=== PATIENT | female | born 1975 | race Caucasian/White ===

== ENCOUNTER 2023-03-17 11:42 | Inpatient (IN) | payer BC, SELFPAY ==
[2023-03-17] VITALS (14 sets, daily range): BP systolic 113–151; BP diastolic 57–96; PULSE 84–96; RESP 13–27; TEMP 36.9–37.4; O2SAT 94–99; BMI 38.7
--- NOTE | ~2023-03-17 | US_ITS ---
EXAMINATION: US pelvic complete DATE: 03/17/2023 18:07 INDICATION: Right lower quadrant abdominal pain. TECHNIQUE: Multiple transabdominal and endovaginal sonographic images of the pelvis were obtained. COMPARISON: None. FINDINGS: The anteverted uterus measures 8.0 x 3.7 x 4.9 cm. The endometrial complex measures 5 mm in thicknes s. There is small amount of hypoechoic material surrounded by anechoic fluid within the endocervical canal. The fluid within the endocervical canal measures 2.2 cm in length and 1.5 x 0.4 cm maximal tra nsaxial dimensions. 3 mm anechoic nabothian cyst at the upper cervix. The right ovary measures 3.0 x 3.9 x 3.1 cm. Vascular flow is identified in the right ovary on color Doppler. Along side the right o vary at the right adnexa is a dilated anechoic tubular structure consistent with a hydrosalpinx. The wall appears mildly thickened and irregular which along with the prominent enhancement and surroundin g stranding on the immediately prior CT is again suspicious for pyosalpinx. When compared with prior CT, what is measured as the left ovary with central cyst likely represents a portion of a similar dil ated and serpiginous left hydrosalpinx/pyosalpinx. The left ovary is not definitive identified on the provided images but appears normal in size on the prior CT. There is small amount of free fluid in t he pelvis. IMPRESSION: 1. Bilateral dilated fallopian tubes consistent with hydrosalpinx with mildly thickened appearing wal ls which demonstrate enhancement on prior CT suspicious for pyosalpinx. 2. Small amount of echogenic material surrounded by fluid within the endocervical canal which could r epresent blood/clot with normal appearing endometrial canal. Correlate with menstrual cycle. Reviewed, dictated and finalized at location A. ROOFER IMPRESSION: 1. Bilateral dilated fallopian tubes consistent with hydrosalpinx with mildly t hickened appearing kern which demonstrate enhancement on prior CT suspicious f or pyosalpinx. 2. Small amount of echogenic material surrounded by fluid within the endocervic al canal which could represent blood/clot with normal appearing endometrial can al. Correlate with menstrual cycle.
--- NOTE | ~2023-03-17 | CT_ITS ---
EXAMINATION: CT guide absc cath placement DATE: 03/18/2023 15:54 INDICATION: Right-sided tubo-ovarian abscess. TECHNIQUE: The procedure including the risks, benefits, and alternatives was discussed with the patie nt. Risks discussed included bleeding and infection. The patient understood the risks and benefits an d agreed to proceed. The patient was confirmed to be receiving appropriate antibiotic coverage. The skin overlying the abdomen was prepped and draped in usual sterile fashion. Anesthetic was administe red with 1% lidocaine subcutaneously. Moderate sedation was achieved with 1 mg Versed IV and 50 mcg f entanyl IV. An 18 gauge trochar needle was inserted into the right tubo-ovarian abscess with CT starla nce. The needle was exchanged over a wire for 5 Niuean, 7 Niuean, and 9 Niuean dilators and then for an 8.5 Niuean pigtail catheter. The catheter was stitched to the skin, and a sterile dressing was koby lied. The mA was adjusted according to patient size. Iterative reconstruction technique was employed. The dose-length product was 242.36 mGy-cm. There were no immediate complications. FINDINGS: CT images demonstrate the catheter within the right tubo-ovarian abscess. 10 mL fluid was a spirated for testing. IMPRESSION: 1. Successful CT-guided right tubo-ovarian abscess drainage. 2. 10 mL opaque, ascencio fluid was sent for aerobic and anaerobic cultures. Reviewed, dictated and finalized at location A. OR ANALYST PROGRAMMER
--- NOTE | ~2023-03-17 | CT_ITS ---
EXAMINATION: CT abdomen pelvis w con DATE: 03/17/2023 15:16 INDICATION: Right lower quadrant abdominal pain. TECHNIQUE: Computed tomography (CT) of the abdomen and pelvis was performed with 100 mL Omnipaque 350 intravenous contrast. Automated exposure control and iterative reconstruction technique were employe d. The dose-length product was 1358.28 mGy-cm. COMPARISON: None. FINDINGS: The visualized portions of the lung bases demonstrate mild atelectasis. No pleural effusion . The heart size is normal. No pericardial effusion. The liver is normal. There are changes of cholec ystectomy. The spleen, pancreas, adrenal glands, and kidneys are normal. There are no dilated loops o f bowel. The appendix is not visualized. There is bilateral hydrosalpinx, right worse than left. The right-sided hydrosalpinx measures 6.1 x 3.6 x 6.0 cm. The left-sided hydrosalpinx measures 2.5 x 2.7 x 2.7 cm. There is fat stranding in the pelvis. There are no pathologically enlarged lymph nodes. The re is physiologic fluid in the pelvis. There is severe lumbar spondylosis. There is mild chronic ante rior wedging of T11 vertebral body. IMPRESSION: 1. Bilateral hydrosalpinx, likely pyosalpinx (tubo-ovarian abscesses). Reviewed, dictated and finalized at location A. GAGE BROKER
[2023-03-17 12:09] LABS: Basophils Absolute Auto 0.1 K/mm3 (0.0-0.1); Basophils Percent Auto 0.4 % (0.2-1.2); Hematocrit 45.6 % (37.0-47.0); Hemoglobin 14.3 g/dL (12.0-15.0); Immature Granulocyte Absolute 0.29 K/mm3 (0.00-0.031); Immature Granulocyte Percent A 0.9 % (0-0.5); Lymphocytes Absolute Auto 2.04 K/mm3 (0.9-3.2); Lymphocytes Percent Auto 6.5 % (18.3-44.2); Mean Corpuscular HGB Conc 31.4 g/dl (32-36); Mean Corpuscular Hemoglobin 27.3 pg (26-34); Mean Corpuscular Volume 87.2 fl (80-100); Mean Platelet Volume 9.8 fl (7.4-10.4); Monocytes Absolute Auto 1.3 K/mm3 (0.1-0.6); Monocytes Percent Auto 4.3 % (2.6-8.5); Neutrophils Absolute Auto 27.4 K/mm3 (1.3-6.7); Neutrophils Percent Auto 87.9 % (45.5-73.1); Platelet Count Result 373 k/mm3 (150-375); Red Blood Count 5.23 M/mm3 (4.2-5.4); White Blood Count 31.2 K/mm3 (4.5-10.0)
[2023-03-17 12:28] LABS: Atypical Lymphocytes Present; Platelet Estimate Adequate (Adequate); Schistocytes None Seen (NORMAL)
[2023-03-17 12:29] LABS: Alanine Aminotransferase 21 U/L (6-35); Albumin Level 4.2 g/dL (3.5-5.1); Alkaline Phosphatase 91 U/L (38-126); Anion Gap 10 mmol/L (8-16); Aspartate Amino Transferase 31 U/L (14-36); Bilirubin,Total 0.9 mg/dL (0.2-1.3); Blood Urea Nitrogen 10 mg/dL (7-17); Calcium 9.3 mg/dL (8.4-10.2); Carbon Dioxide 23 mmol/L (22-30); Chloride 103 mmol/L (98-107); Estimated CRCL calculation 99 ml/min; Estimated Glomerular Filt Rate > 60; Glucose 144 mg/dL (65-110); Lipase 27 U/L (23-300); Sodium 136 mmol/L (137-145)
--- NOTE | 2023-03-17 13:45 | ED.GENADULT ---
HPI - General Adult General Chief complaint: Abdominal Pain <Georgi Delarosa PA-C - Last Filed: 03/17/23 14:13> Stated complaint: abd pain <Georgi Delarosa PA-C - Last Filed: 03/17/23 14:13> Time Seen by Provider: 03/17/23 13:32 <Georgi Delarosa PA-C - Last Filed: 03/17/23 14:13> Source: patient <Georgi Delarosa PA-C - Last Filed: 03/17/23 14:13> Mode of arrival: ambulatory <Georgi Delarosa PA-C - Last Filed: 03/17/23 14:13> Limitations: no limitations <Georgi Delarosa PA-C - Last Filed: 03/17/23 14:13> History of Present Illness HPI narrative: This is a 47-year-old female who presents ED chief complaint of right lower quadrant abdominal pain beginning last night. Reports that she has history of a cyst on the right side, however pain became severe, and unlike any pain she has had before. Reports it started after becoming nauseated and episodes. Reports 10/10 pain here. Reports it is only located in the right lower quadrant. Denies fevers, chills, problems with urination, any concern for STDs. Reports abdominal surgical history of cholecystectomy. <Georgi Delarosa PA-C - Last Filed: 03/17/23 14:13> This is a 47-year-old female who presents ED chief complaint of right lower quadrant abdominal pain beginning last night. Reports that she has history of a cyst on the right side, however pain became severe, and unlike any pain she has had before. Reports it started after becoming nauseated and episodes. Reports 10/10 pain here. Reports it is only located in the right lower quadrant. Denies fevers, chills, problems with urination, any concern for STDs. Reports abdominal surgical history of cholecystectomy. patient denies any heavy vaginal bleeding but states she is still having some spotting after having her period on March 05. Patient denies any vaginal discharge. <Ricardo Ariza MD - Last Filed: 03/17/23 18:54> Related Data Allergies/adverse reactions: Allergies Allergy/AdvReac Type Severity Reaction Status Date / Time erythromycin base Allergy Unknown TOLD Verified 03/17/23 13:46 CHILD aspirin Allergy Unknown Verified 03/17/23 13:46 <Georgi Delarosa PA-C - Last Filed: 03/17/23 14:13> Review of Systems Review of Systems: All systems as dictated in HPI <Georgi Delarosa PA-C - Last Filed: 03/17/23 14:13> Exam Narrative: GENERAL: Well-appearing, well-nourished, and in no acute distress. HEAD: Normocephalic, atraumatic. EYES: PERRLA and EOMI. ENT: Nares clear, no rhinorrhea or epistaxis. Mucous membranes moist. Oropharynx without tonsillar hypertrophy exudate or other lesions. NECK: Supple. No adenopathy or masses. CHEST: No respiratory distress. Clear to auscultation. No wheezes rales or rhonchi HEART: Regular rate and rhythm. No murmur heard. Normal peripheral pulses. ABDOMEN: McBurney's point positive. Psoas sign positive. Tender in the right lower and left lower quadrants. Voluntary guarding. soft, nondistended, normal active bowel sounds. MSK: Normal range of motion. No edema. SKIN: Warm, dry, no rash. NEURO: Alert and oriented x3. No focal deficits. PSYCH: Normal mood and affect. <Georgi Delarosa PA-C - Last Filed: 03/17/23 14:13> Course Course Emergency Course: 47-year-old female presents emergency department for evaluation of lower abdominal pain. CT scan was concerning for pyosalpinx. OBGyne was consulted and a pelvic ultrasound was ordered. Ultrasound was more indicative of hydrosalpinx. In response to the CT showing possible pyosalpinx patient was started ceftriaxone, Flagyl and doxycycline. OB Gyne was updated on the results of the CT and ultrasound. Patient was updated on the plan for IV antibiotics and admission. All questions and concerns were addressed. Patient was stable at time of admission. <Ricardo Ariza MD - Last Filed: 03/17/23 18:54> Vital Signs Vital signs: Vital Signs Temperature 98.4 F
[2023-03-17] MEDS: SODIUM CHLORIDE 0.9% IV 1,000 ML 999 ML IV CONT (14:27)
[2023-03-17] MEDS: ONDANSETRON INJ 4 MG/2 ML VIAL IV PUSH ×2 (14:27→21:20)
[2023-03-17] MEDS: HYDROmorphone HCL INJ (*CRX) 1 MG/ML SYR 0.5 MG IV PUSH (14:28)
[2023-03-17 14:49] LABS: Appearance Urine Clear (Clear); Bacteria Urine None Seen /hpf; Bilirubin Urine Negative (Negative); Blood Urine Negative (Negative); Color Urine Yellow (Yellow); Glucose Urine UA Negative (Negative); Ketones Urine 1+ mg/dL (Negative); Leukocyte Esterase Ur Negative LEU/UL (Negative); Nitrate Urine Negative (Negative); Non Pathogenic Casts 0-2; Protein Urine 1+ mg/dL (Negative); Specific Grav Ur 1.027 (1.001-1.035); Squamous Epithelial Cell Urine None seen /hpf (Few); Urobilinogen Urine 0.2 mg/dL (<2.0); WBC Urine 0-5 /hpf
[2023-03-17 14:52] LABS: Add Urine Microscopic? YES
[2023-03-17] MEDS: metroNIDAZOLE 500 MG/ISO 100ML 500 MG/100 ML BAG 100 MG IVPB (16:44)
[2023-03-17 17:46] LABS: Trichomonas Vag PCR NOT DETECTED (NOT DETECTE)
[2023-03-17 18:10] LABS: Chlamydia trachomatis NOT DETECTED (NOT DETECTE); Neisseria gonorrhoeae PCR NOT DETECTED (NOT DETECTE)
[2023-03-17] MEDS: DOXYCYCLINE 100 MG/NS 100 ML 100 MG/100 ML BAG IVPB (18:20)
--- NOTE | 2023-03-17 19:27 | PC.NURSE ---
Pts visitors requested temperature to be taken, this RN took pt oral temperature which read 98.8 and visitors voiced youre doing us no good, she just drank icewater . This RN attempted stated well I can take it under your arm if you would like to which pt pushed RNs arm away stating she doesnt need attitude. This RN exited room and notified charge, RN.
--- NOTE | 2023-03-17 21:12 | ADMGEN ---
This patient, Lucille Ruth, was admitted to [facility] Surg Room 321-02 at 1925. Patient/family oriented to hospital policies and general routines including ID bracelet, bed and alarms, visiting hours, pain management, procedures, bathroom and other care routines, personal items, smoking policy, room service/diet, and visiting hours. Information on how to activate the Rapid Response Team has been discussed. Patient/Family are encouraged to report perceived risks to care and to ask questions if they do not understand what they are told or what they should do.
[2023-03-17] MEDS: THIAMINE HCL INJ 100 MG, FOLIC ACID INJ 1 MG, MAGNESIUM SULFATE INJ 1 GM in LACTATED RI... IV CONT (21:55)
[2023-03-18] VITALS (11 sets, daily range): BP systolic 109–130; BP diastolic 62–85; PULSE 76–87; RESP 13–27; TEMP 36.2–37.1; O2SAT 91–97; BMI 38.7
[2023-03-18] MEDS: HYDROmorphone HCL INJ (*CRX) 1 MG/ML SYR 0.5 MG IV PUSH (00:27)
[2023-03-18] MEDS: ONDANSETRON INJ 4 MG/2 ML VIAL IV PUSH ×3 (04:06→14:43)
[2023-03-18 06:11] LABS: Basophils Absolute Auto 0.1 K/mm3 (0.0-0.1); Basophils Percent Auto 0.2 % (0.2-1.2); Hematocrit 41.7 % (37.0-47.0); Hemoglobin 13.1 g/dL (12.0-15.0); Immature Granulocyte Absolute 0.31 K/mm3 (0.00-0.031); Immature Granulocyte Percent A 1.2 % (0-0.5); Lymphocytes Absolute Auto 1.58 K/mm3 (0.9-3.2); Lymphocytes Percent Auto 6.3 % (18.3-44.2); Mean Corpuscular HGB Conc 31.4 g/dl (32-36); Mean Corpuscular Hemoglobin 27.9 pg (26-34); Mean Corpuscular Volume 88.9 fl (80-100); Mean Platelet Volume 9.7 fl (7.4-10.4); Monocytes Absolute Auto 0.9 K/mm3 (0.1-0.6); Monocytes Percent Auto 3.6 % (2.6-8.5); Neutrophils Absolute Auto 22.2 K/mm3 (1.3-6.7); Neutrophils Percent Auto 88.7 % (45.5-73.1); Platelet Count Result 303 k/mm3 (150-375); Red Blood Count 4.69 M/mm3 (4.2-5.4); Red Cell Distribution Width 14.1 % (11.5-14.5)
[2023-03-18] MEDS: metroNIDAZOLE 500 MG/ISO 100ML 500 MG/100 ML BAG 100 MG IVPB ×2 (06:14→16:40)
--- NOTE | 2023-03-18 06:22 | PM.IMHP ---
H&P: HPI History of Present Illness Date/Time: 03/17/23 19:02 Chief Complaint: RLQ pain Narrative: Lucille is a 47yo G0, LMP 03/05/23 who presented to the ER with RLQ pain. She was found to have a leukocytosis of 30K. CT scan was ordered to rule out intra-abdominal process and concerns for TOA were noted. STI screen was negative in the ER. She has a h/o chlamydial infection many years ago. She has been following with a SQL DATABASE PROGRAMMER in [place] for an 8cm right ovarian cyst for the last two years; last imaging was 6 months ago. She has a h/o PCOS but reports for the last few years her cycles have been very regular, not too heavy or painful. No overt abnormal vaginal discharge, bleeding. No dysuria. She has been having vomiting and diarrhea since Friday and really thought she had appendicitis. She has not had anything to eat since Friday except for crackers and small sips of Sprite. Pain is better controlled today, compared to yesterday. Afebrile. NPO. Review of Systems Constitutional: Constitutional: Denies fever(s) Cardiovascular: Cardiovascular: Denies chest pain and Denies rapid heart rate Respiratory: Respiratory: Denies cough and Denies dyspnea Gastrointestinal: Gastrointestinal: Reports abdominal pain, Denies constipation, Reports GI cramping, Reports diarrhea, Reports nausea and Reports vomiting Genitourinary: Genitourinary: Denies abnormal vaginal bleeding, Reports pelvic pain, Reports vaginal discharge and Denies vaginal odor Neurologic: Denies headache(s) [facility] Social History Social History Smoking status: Current some day smoker Smokeless tobacco user: other Alcohol intake: former Substance use: current Substance use type: marijuana Last use: 03/17/23 Lack of Transportation: No Lack of Food: Never True Current Housing: I Have Housing Concerned About Future Housing: No Difficulty Paying Gas/Electric Bills: No Difficulty Paying for Meds: No Currently Unemployed: No Education: High School Diploma/GED Difficulty w/ Childcare or Family Care: No Spiritual care concerns: No Meds Home Medications and Allergies Home Medications Medication Instructions Recorded Confirmed Type No Home Medications 03/17/23 03/17/23 History Allergies Allergy/AdvReac Type Severity Reaction Status Date / Time erythromycin base Allergy Unknown TOLD Verified 03/17/23 13:46 CHILD aspirin Allergy Unknown Verified 03/17/23 13:46 Vital Signs Vital Signs - 24 hr 03/17/23 11:44 03/17/23 13:57 03/17/23 14:46 Temperature 98.4 F Pulse Rate 90 90 90 Respiratory Rate 20 22 H 19 Blood Pressure 151/92 H 123/74 140/78 Pulse Oximetry 99 97 97 Oxygen Delivery Room Air 03/17/23 15:01 03/17/23 16:08 03/17/23 16:35 Temperature Pulse Rate 94 84 93 Respiratory Rate 18 22 H 13 Blood Pressure 130/85 126/74 130/80 Pulse Oximetry 99 94 96 Oxygen Delivery 03/17/23 13:57 03/17/23 14:01 03/17/23 14:47 Temperature Pulse Rate 87 84 92 Respiratory Rate 23 H 26 H 23 H Blood Pressure 123/74 114/57 L 140/78 Pulse Oximetry 95 96 98 Oxygen Delivery 03/17/23 15:01 03/17/23 16:16 03/17/23 17:01 Temperature Pulse Rate 96 89 84 Respiratory Rate 16 20 22 H Blood Pressure 130/85 127/69 113/69 Pulse Oximetry 99 94 96 Oxygen Delivery 03/17/23 17:16 03/17/23 18:21 Temperature Pulse Rate 85 88 Respiratory Rate 27 H 22 H Blood Pressure 121/59 L 130/96 H Pulse Oximetry 99 98 Oxygen Delivery Exam Const: General: cooperative, healthy appearing, comfortable, no acute distress and obese Resp: Effort & Inspection: normal respiratory effort Auscultation: clear to auscultation bilaterally Cardio: Rate: regular rate GI: Inspection: normal to inspection GI Palp: Yes abdominal tenderness, Yes Soft to palpation, Yes Tenderness to palpation present (GI) and No Guarding due to palpation present (GI) Auscultation: normal bowel sounds Skin: General skin exam: normal co
[2023-03-18] MEDS: DOXYCYCLINE 100 MG/NS 100 ML 100 MG/100 ML BAG IVPB ×2 (07:40→18:36)
[2023-03-18] MEDS: DEXTROSE 5%/0.9% SOD CHL 1,000 ML 125 ML IV CONT ×2 (08:54→23:57)
[2023-03-18 13:33] LABS: SPREG INTERNAL CONTROL Positive; Serum Qual hCG Negative
[2023-03-18 13:35] LABS: INR 1.3; Prothrombin Time 16.6 Seconds (11.1-14.7)
[2023-03-18 13:37] LABS: Partial Thromboplastin Time 35.5 SECONDS (22.3-36.8)
--- NOTE | 2023-03-18 15:04 | WPDMODSED ---
Moderate Sedation Note-Pt Data Patient Data Diagnosis: Tubo-ovarian abscess. Present Complaint: Tubo-ovarian abscess. Procedure to be performed/Plan: CT-guided right tubo-ovarian abscess drainage. Allergies Allergy/AdvReac Type Severity Reaction Status Date / Time erythromycin base Allergy Unknown TOLD Verified 03/17/23 13:46 CHILD aspirin Allergy Unknown Verified 03/17/23 13:46 Home Medications Medication Instructions Recorded Confirmed Type No Home Medications 03/17/23 03/17/23 History Current Medications: Active Medications Acetaminophen (Acetaminophen 500 Mg Tablet) 1,000 mg PO Q6H PRN PRN Reason: Mild Pain (1-3) or Fever Hydrocodone Bitart/Acetaminophen (Hydrocodone/Acetaminophen (*Crx) 5-325 Mg Tablet) 1 tab PO Q4H PRN PRN Reason: Pain Rated 4-6 Docusate Sodium (Docusate Sodium 100 Mg Capsule) 100 mg PO Q12H PRN PRN Reason: Constipation Hydromorphone HCl (Hydromorphone Hcl Inj (*Crx) 1 Mg/Ml Syr) 0.5 mg IV PUSH Q4H PRN PRN Reason: Pain Rated 7-10 Last Admin: 03/18/23 00:27 Dose: 0.5 mg Ceftriaxone Sodium (Rocephin 1 Gm/Ns 50 Ml) 1 gm in 50 mls @ 100 mls/hr IVPB Q24H [facility] Doxycycline Hyclate (Vibramycin 100 Mg/Ns 100 Ml) 100 mg in 100 mls @ 100 mls/hr IVPB Q12H [facility] Last Admin: 03/18/23 07:40 Dose: 100 mls/hr Metronidazole (Flagyl 500 Mg/Iso Soln 100 Ml) 500 mg in 100 mls @ 100 mls/hr IVPB Q12H [facility] Last Infusion: 03/18/23 07:14 Dose: Infused Dextrose/Sodium Chloride (Dextrose 5% Sodium Chloride 0.9%) 1,000 mls @ 125 mls/hr IV CONT .Q8H [facility] Last Admin: 03/18/23 08:54 Dose: 125 mls/hr Ondansetron HCl (Ondansetron Inj 4 Mg/2 Ml Vial) 4 mg IV PUSH Q4H PRN PRN Reason: Nausea Last Admin: 03/18/23 14:43 Dose: 4 mg Sedation/Anesthesia: No previous sedation/anesthesia problems (including family history). PMFSH Social History Social History Smoking status: Current some day smoker Smokeless tobacco user: other Alcohol intake: former Substance use: current Substance use type: marijuana Last use: 03/17/23 Lack of Transportation: No Lack of Food: Never True Current Housing: I Have Housing Concerned About Future Housing: No Difficulty Paying Gas/Electric Bills: No Difficulty Paying for Meds: No Currently Unemployed: No Education: High School Diploma/GED Difficulty w/ Childcare or Family Care: No Spiritual care concerns: No Mod Sed Physical Exam Physical Exam Pre Procedural Exam: Normal: Airway, Lungs, Heart Rate and Heart Rhythm and Variation: Abdomen (diffuse tenderness, worse inferiorly) Hours since solid foods: 12 Hours since liquid intake: 12 Mallampati Classification: class II Internal Medicine - PN: Obj Da Vital Signs Vital Signs: Vital Signs - 24 hr 03/17/23 16:08 03/17/23 16:35 03/17/23 16:16 Temperature Pulse Rate 84 93 89 Respiratory Rate 22 H 13 20 Blood Pressure 126/74 130/80 127/69 Pulse Oximetry 94 96 94 Oxygen Delivery 03/17/23 17:01 03/17/23 17:16 03/17/23 18:21 Temperature Pulse Rate 84 85 88 Respiratory Rate 22 H 27 H 22 H Blood Pressure 113/69 121/59 L 130/96 H Pulse Oximetry 96 99 98 Oxygen Delivery 03/17/23 19:37 03/17/23 19:50 03/17/23 20:00 Temperature 37.4 C Pulse Rate 90 86 Respiratory Rate 18 Blood Pressure 119/68 119/71 Pulse Oximetry 96 99 Oxygen Delivery Room Air 03/18/23 05:58 03/18/23 08:00 03/18/23 14:00 Temperature 36.3 C L 36.2 C L Pulse Rate 87 85 Respiratory Rate 18 16 Blood Pressure 126/85 127/74 Pulse Oximetry 94 95 Oxygen Delivery Room Air Intake/Output Intake/Output: Intake & Output 03/15/23 03/16/23 03/17/23 03/18/23 23:59 23:59 23:59 23:59 Intake Total 1250 100 Balance 1250 100 Meds/Results Medications: Active Medications Generic Name Dose Route Start Last Admin Trade Name Freq PRN Reason Stop Dose Admin Acetaminophen 1,000 mg 03/17/23 19:01 Acetaminophen 500 Mg Tablet PO Q6H PRN
[2023-03-19] MEDS: ACETAMINOPHEN 500 MG TABLET 1000 MG PO ×2 (04:43→16:57)
[2023-03-19] MEDS: metroNIDAZOLE 500 MG/ISO 100ML 500 MG/100 ML BAG 100 MG IVPB ×2 (05:01→16:58)
[2023-03-19 05:36] VITALS: BP 115/73; PULSE 66; RESP 14; TEMP 37.2; O2SAT 92
[2023-03-19] MEDS: DOXYCYCLINE 100 MG/NS 100 ML 100 MG/100 ML BAG IVPB ×2 (06:25→18:21)
[2023-03-19 06:31] LABS: Basophils Absolute Auto 0.1 K/mm3 (0.0-0.1); Basophils Percent Auto 0.3 % (0.2-1.2); Eosinophils Absolute Auto 0.2 K/mm3 (0-0.3); Eosinophils Percent Auto 1.3 % (0-4.4); Hematocrit 36.2 % (37.0-47.0); Hemoglobin 11.1 g/dL (12.0-15.0); Immature Granulocyte Absolute 0.12 K/mm3 (0.00-0.031); Immature Granulocyte Percent A 0.8 % (0-0.5); Lymphocytes Absolute Auto 2.13 K/mm3 (0.9-3.2); Lymphocytes Percent Auto 13.8 % (18.3-44.2); Mean Corpuscular HGB Conc 30.7 g/dl (32-36); Mean Corpuscular Hemoglobin 27.5 pg (26-34); Mean Corpuscular Volume 89.8 fl (80-100); Mean Platelet Volume 10.1 fl (7.4-10.4); Monocytes Absolute Auto 0.9 K/mm3 (0.1-0.6); Monocytes Percent Auto 5.6 % (2.6-8.5); Neutrophils Absolute Auto 12.1 K/mm3 (1.3-6.7); Neutrophils Percent Auto 78.2 % (45.5-73.1); Platelet Count Result 266 k/mm3 (150-375); Red Blood Count 4.03 M/mm3 (4.2-5.4); Red Cell Distribution Width 14.1 % (11.5-14.5); White Blood Count 15.5 K/mm3 (4.5-10.0)
[2023-03-19 06:56] LABS: Anion Gap 7 mmol/L (8-16); Blood Urea Nitrogen 12 mg/dL (7-17); Calcium 7.8 mg/dL (8.4-10.2); Carbon Dioxide 25 mmol/L (22-30); Chloride 107 mmol/L (98-107); Estimated CRCL calculation 113 ml/min; Estimated Glomerular Filt Rate > 60; Glucose 122 mg/dL (65-110); Potassium 3.4 mmol/L (3.4-5.0); Sodium 139 mmol/L (137-145)
--- NOTE | 2023-03-19 09:07 | PM.GYNPNOP ---
MANAGER ACQUISITION - A/P Assessment and plan (1) TOA (tubo-ovarian abscess): Code(s): N70.93 - Salpingitis and oophoritis, unspecified Status: Acute Plan - CT scan and MANAGER ACQUISITION US with right adnexal TOA measuring 7-8cm - S/p RLQ drain placement on 03/18/23 -- output of approximately 100cc since placement - Continue Ceftriaxone 1g q24h, Doxycycline 100mg q12h, & Metronidazole 500mg q12h - STI screening: negative - Blood cultures: NGTD (pending) - Abscess culture: pending - Will trend CBC daily: 31.2 -->25 --> 15.5 - Regular diet, PO pain management, bowel regimen PRN Postoperative Procedures: Procedures Operation Date: 03/18/23 15:00 Actual Procedure Side Surgeon p Radiology Procedure Mod.Sed.Rn- Abscess Drain Placement Not Applicable Franc Call MD Time Spent With Patient Time: Total time spent is greater than 50% in coordination of care (as documented) at patient's floor/unit and/or counseling patient: Time with patient: less than 15 minutes MANAGER ACQUISITION- PN:Subj Post-Op Subjective Date/time seen: 03/19/23 09:07 Interval history: Had drain placed 03/18/23 and a significant amount of fluid has drained; initially purulent, now bloody. She reports her pain is much improved since yesterday. Tolerated CLD yesterday. Had BM, voiding normally. Increase in vaginal discharge noted today. No fevers overnight. Review of Systems Constitutional: Constitutional: Denies chills and Denies fever(s) ENT: Reports headache(s) Cardiovascular: Cardiovascular: Denies chest pain and Denies dyspnea Respiratory: Respiratory: Denies cough Gastrointestinal: Gastrointestinal: Denies diarrhea, Reports nausea and Denies vomiting Genitourinary: Genitourinary: Denies abnormal vaginal bleeding, Denies dysuria, Reports pelvic pain and Reports vaginal discharge Exam Const: General: cooperative, comfortable, no acute distress and obese Resp: Effort & Inspection: normal respiratory effort Auscultation: clear to auscultation bilaterally Cardio: Rate: regular rate GI: GI Palp: Yes abdominal tenderness (mild), Yes Soft to palpation and Yes Other GI palpation findings present (drain from RLQ; bloody fluid in bag) Skin: General skin exam: normal color Neuro: General: patient oriented x3 Extrem: General: normal to inspection Psych: Appearance: grossly normal Affect: normal affect Attitude: cooperative MANAGER ACQUISITION - PN: Obj Data Vital Signs Vital Signs: Vital Signs - 24 hr 03/18/23 14:00 03/18/23 15:10 03/18/23 15:45 Temperature 97.2 F L Pulse Rate 85 85 76 Respiratory Rate 16 17 24 H Blood Pressure 127/74 130/73 120/70 Pulse Oximetry 95 96 95 Oxygen Delivery Nasal Cannula Room Air Oxygen Flow Rate 2 03/18/23 15:15 03/18/23 15:20 03/18/23 15:25 Temperature Pulse Rate 84 87 83 Respiratory Rate 19 21 H 18 Blood Pressure 119/64 115/67 118/64 Pulse Oximetry 94 91 97 Oxygen Delivery Nasal Cannula Nasal Cannula Nasal Cannula Oxygen Flow Rate 2 2 6 03/18/23 15:30 03/18/23 15:35 03/18/23 15:40 Temperature Pulse Rate 85 79 76 Respiratory Rate 22 H 23 H 27 H Blood Pressure 116/62 116/64 116/66 Pulse Oximetry 95 93 93 Oxygen Delivery Nasal Cannula Room Air Room Air Oxygen Flow Rate 2 03/18/23 20:05 03/18/23 21:34 03/19/23 05:36 Temperature 98.8 F 98.9 F Pulse Rate 79 66 Respiratory Rate 13 14 Blood Pressure 109/71 115/73 Pulse Oximetry 96 92 Oxygen Delivery Room Air Oxygen Flow Rate Intake/Output Intake/Output: Intake & Output 03/16/23 03/17/23 03/18/23 03/19/23 23:59 23:59 23:59 23:59 Intake Total 1250 1400 1240 Output Total 90 Balance 1250 1310 1240 Meds/Results Medications: Active Medications Generic Name Dose Route Start Last Admin Trade Name Freq PRN Reason Stop Dose Admin Acetaminophen 1,000 mg 03/17/23 19:01 03/19/23 04:43 Acetaminophen 500 Mg Tablet PO 1,000 mg Q6H PRN Administration Mild Pain (1-3) or Fever Hydrocodone Bitart/Acetaminophen
[2023-03-19] MEDS: DEXTROSE 5%/0.9% SOD CHL 1,000 ML 125 ML IV CONT (10:43)
--- NOTE | 2023-03-19 13:05 | PCCCNOTE ---
On 03/19/23, the student, [Toma Siddiqui], provided care and completed [facility] documentation on this patient. I have reviewed the student's documentation and agree with the findings.
[2023-03-19 14:00] VITALS: BP 120/81; PULSE 75; RESP 18; TEMP 37.4; O2SAT 97
--- NOTE | 2023-03-19 19:47 | PC.NURSE ---
30 ml output for surgical drain
[2023-03-19 22:00] VITALS: BP 113/76; PULSE 61; RESP 16; TEMP 36.6; O2SAT 96
[2023-03-20] MEDS: metroNIDAZOLE 500 MG/ISO 100ML 500 MG/100 ML BAG 100 MG IVPB (05:05)
[2023-03-20 06:00] VITALS: BP 125/80; PULSE 60; RESP 16; TEMP 36.4; O2SAT 96
[2023-03-20] MEDS: DOXYCYCLINE 100 MG/NS 100 ML 100 MG/100 ML BAG IVPB (06:06)
--- NOTE | 2023-03-20 06:23 | PC.NURSE ---
30 ml out from percutaneous drain this shift
[2023-03-20 06:29] LABS: Basophils Percent Auto 0.4 % (0.2-1.2); Eosinophils Absolute Auto 0.3 K/mm3 (0-0.3); Eosinophils Percent Auto 2.6 % (0-4.4); Hematocrit 34.6 % (37.0-47.0); Hemoglobin 10.8 g/dL (12.0-15.0); Immature Granulocyte Absolute 0.06 K/mm3 (0.00-0.031); Immature Granulocyte Percent A 0.5 % (0-0.5); Lymphocytes Absolute Auto 2.27 K/mm3 (0.9-3.2); Lymphocytes Percent Auto 20.7 % (18.3-44.2); Mean Corpuscular HGB Conc 31.2 g/dl (32-36); Mean Corpuscular Hemoglobin 27.5 pg (26-34); Monocytes Absolute Auto 0.7 K/mm3 (0.1-0.6); Neutrophils Absolute Auto 7.6 K/mm3 (1.3-6.7); Neutrophils Percent Auto 69.8 % (45.5-73.1); Platelet Count Result 314 k/mm3 (150-375); Red Blood Count 3.93 M/mm3 (4.2-5.4)
--- NOTE | 2023-03-20 06:40 | PM.GYNPNOP ---
SET DECORATOR - A/P Assessment and plan (1) TOA (tubo-ovarian abscess): Code(s): N70.93 - Salpingitis and oophoritis, unspecified Status: Acute Assessment and Plan: - CT scan and SET DECORATOR US with right adnexal TOA measuring 7-8cm - S/p RLQ drain placement on 03/18/23 -- output of approximately 80cc in last 24 hours - S/p Ceftriaxone 1g q24h, Doxycycline 100mg q12h, & Metronidazole 500mg q12h for >72 hours --> will transition to PO meds; Flagyl 500mg BID + doxycycline 100mg BID, first dose tonight - STI screening: negative - Blood cultures: NGTD (pending) - Abscess culture: Gram negative bacilli (pending) - Will trend CBC daily: 31.2 -->25 --> 15.5 --> 11 - Regular diet, PO pain management, bowel regimen PRN - Plan for possible d/c home this weekend; will likely have to go home with drain as it continues to have high output Postoperative Procedures: Procedures Operation Date: 03/18/23 15:00 Actual Procedure Side Surgeon p Radiology Procedure Mod.Sed.Rn- Abscess Drain Placement Not Applicable Franc Call MD Time Spent With Patient Time: Total time spent is greater than 50% in coordination of care (as documented) at patient's floor/unit and/or counseling patient: Time with patient: less than 15 minutes SET DECORATOR- PN:Subj Post-Op Subjective Date/time seen: 03/20/23 06:40 Interval history: TOA drain continues to have high output. She reports her pain is minimal. Tolerating regular diet. Using restroom normally. Vaginal discharge noted. No fevers overnight. Review of Systems Constitutional: Constitutional: Denies chills and Denies fever(s) ENT: Denies headache(s) Cardiovascular: Cardiovascular: Denies chest pain and Denies dyspnea Respiratory: Respiratory: Denies cough Gastrointestinal: Gastrointestinal: Denies diarrhea, Denies nausea and Denies vomiting Genitourinary: Genitourinary: Denies abnormal vaginal bleeding, Denies dysuria, Reports pelvic pain and Reports vaginal discharge Exam Const: General: cooperative, comfortable, no acute distress and obese Resp: Effort & Inspection: normal respiratory effort Auscultation: clear to auscultation bilaterally Cardio: Rate: regular rate GI: GI Palp: Yes abdominal tenderness (mild), Yes Soft to palpation and Yes Other GI palpation findings present (drain from RLQ; bloody fluid in bag) Skin: General skin exam: normal color Neuro: General: patient oriented x3 Extrem: General: normal to inspection Psych: Appearance: grossly normal Affect: normal affect Attitude: cooperative SET DECORATOR - PN: Obj Data Vital Signs Vital Signs: Vital Signs - 24 hr 03/19/23 08:00 03/19/23 14:00 03/19/23 22:00 Temperature 99.3 F 97.9 F Pulse Rate 75 61 Respiratory Rate 18 16 Blood Pressure 120/81 113/76 Pulse Oximetry 97 96 Oxygen Delivery Room Air Intake/Output Intake/Output: Intake & Output 03/17/23 03/18/23 03/19/23 03/20/23 23:59 23:59 23:59 23:59 Intake Total 1250 1450 2926 200 Output Total 90 80 31 Balance 1250 1360 2846 169 Meds/Results Medications: Active Medications Generic Name Dose Route Start Last Admin Trade Name Freq PRN Reason Stop Dose Admin Acetaminophen 1,000 mg 03/17/23 19:01 03/19/23 16:57 Acetaminophen 500 Mg Tablet PO 1,000 mg Q6H PRN Administration Mild Pain (1-3) or Fever Hydrocodone Bitart/Acetaminophen 1 tab 03/17/23 19:01 Hydrocodone/Acetaminophen (*Crx) 5-325 Mg Tablet PO Q4H PRN Pain Rated 4-6 Calcium Carbonate 200 mg 03/20/23 00:35 Calcium Carbonate (Tums) 500 Mg (200 Mg Elemental) PO Q6H PRN Indigestion Docusate Sodium 100 mg 03/17/23 21:00 Docusate Sodium 100 Mg Capsule PO Q12H PRN Constipation Hydromorphone HCl 0.5 mg 03/17/23 18:49 03/18/23 00:27 Hydromorphone Hcl Inj (*Crx) 1 Mg/Ml Syr IV PUSH 0.5 mg Q4H PRN Administration Pain Rated 7-10 Ceftriaxone Sodium 1 gm in 50 mls @ 100 mls/hr 03/18/23 16:00 03/19/23 17:30 Steff
--- NOTE | 2023-03-20 10:45 | PCNFU ---
Nutrition Follow-Up Complete: Inadequate energy intake related to NPO status as evidenced by diet order Goal:Diet advanced PO intake 75% of meals Pt meeting goals, continue with same goals. Pt current nutrition is Regular. Nutrition recommendation: continue with current plan of care Last recorded weight is 102.3 kg. Bowel Motility: +BM 03/20 Labs Reviewed: Hgb:10.8, HCT:34.6, Cr:0.6 Meds Noted: zofran Skin: WNL Additional Notes: Pt diet advanced to regular, intake good at this time, tolerating. Encourage good intake. Monitor for diet order, intake, tolerance, wt, labs. Follow up in 7 days.
[2023-03-20 14:00] VITALS: BP 117/84; PULSE 70; RESP 20; TEMP 36.7; O2SAT 98
[2023-03-20] MEDS: CALCIUM CARBONATE (TUMS) 500 MG (200 MG ELEMENTAL) PO (17:00)
[2023-03-20] MEDS: DOXYCYCLINE HYCLATE 100 MG TABLET PO (20:50)
[2023-03-20] MEDS: metroNIDAZOLE 500 MG TABLET PO (20:50)
[2023-03-20 22:00] VITALS: BP 109/66; PULSE 62; RESP 16; TEMP 36.1; O2SAT 98
[2023-03-21 05:55] VITALS: BP 114/70; PULSE 66; RESP 16; TEMP 36.7; O2SAT 98
[2023-03-21 06:54] LABS: Basophils Absolute Auto 0.1 K/mm3 (0.0-0.1); Basophils Percent Auto 0.5 % (0.2-1.2); Eosinophils Absolute Auto 0.3 K/mm3 (0-0.3); Eosinophils Percent Auto 3.3 % (0-4.4); Hematocrit 38.3 % (37.0-47.0); Immature Granulocyte Absolute 0.06 K/mm3 (0.00-0.031); Immature Granulocyte Percent A 0.6 % (0-0.5); Lymphocytes Absolute Auto 2.64 K/mm3 (0.9-3.2); Mean Corpuscular HGB Conc 31.3 g/dl (32-36); Mean Corpuscular Hemoglobin 27.8 pg (26-34); Mean Corpuscular Volume 88.7 fl (80-100); Mean Platelet Volume 9.7 fl (7.4-10.4); Monocytes Absolute Auto 0.7 K/mm3 (0.1-0.6); Monocytes Percent Auto 6.4 % (2.6-8.5); Neutrophils Absolute Auto 6.4 K/mm3 (1.3-6.7); Neutrophils Percent Auto 63.2 % (45.5-73.1); Platelet Count Result 351 k/mm3 (150-375); Red Blood Count 4.32 M/mm3 (4.2-5.4); Red Cell Distribution Width 14.1 % (11.5-14.5); White Blood Count 10.2 K/mm3 (4.5-10.0)
[2023-03-21] MEDS: ACETAMINOPHEN 500 MG TABLET 1000 MG PO (08:19)
[2023-03-21] MEDS: metroNIDAZOLE 500 MG TABLET PO (08:19)
[2023-03-21] MEDS: DOXYCYCLINE HYCLATE 100 MG TABLET PO (08:19)
[2023-03-21] MEDS: CALCIUM CARBONATE (TUMS) 500 MG (200 MG ELEMENTAL) PO (08:20)
[2023-03-21 14:00] VITALS: BP 143/69; PULSE 68; RESP 20; TEMP 36.3; O2SAT 99
--- NOTE | 2023-03-24 13:14 | P.DS_ITS ---
DS: Admitting Diagnosis Discharge Date 03/21/23 Admitting Diagnosis TOA DS: Discharge Diagnosis Discharge Diagnosis (1) TOA (tubo-ovarian abscess): Code(s): N70.93 - Salpingitis and oophoritis, unspecified Status: Acute Assessment and Plan: s/p IR drain placement DS: Summary Hospital Course Hospital Course: Lucille was admitted after CT A/P confirmed a right sided TOA. She had a WBC of 31k. She was admitted and started on IV antibiotics (Ceftriaxone 1g q24h, Doxycycline 100mg q12h, & Metronidazole 500mg q12h). On HD #2, radiology was consulted and was able to place a drain in the TOA. Her WBC was trended and normalized. Blood cultures were negative. Abscess culture grew Klebsiella pneumoniae. She was transitioned to PO antibiotics and remained afebrile with downtrending WBC. She was discharged home after drain was removed. She was ambulating, afebrile, pain controlled, normal bowel/bladder function. She has close f/u outpatient. Status at Discharge Functional status at discharge: independent ambulation Overall status at discharge: patient is progressing back to baseline Time Spent with Patient Time attestation: Total time spent providing and/or coordinating discharge services: Time spent: Less than 30 minutes Exam Const: General: cooperative, comfortable, no acute distress and obese Resp: Effort & Inspection: normal respiratory effort Auscultation: clear to auscultation bilaterally Cardio: Rate: regular rate GI: GI Palp: Yes abdominal tenderness (mild), Yes Soft to palpation and Yes Other GI palpation findings present (drain from RLQ removed) Skin: General skin exam: normal color Neuro: General: patient oriented x3 Extrem: General: normal to inspection Psych: Appearance: grossly normal Affect: normal affect Attitude: cooperative Discharge Plan Discharge Consulting providers: Laron Cervantes; Georgi Delarosa; Spenser Sexton Jonathan V. Discharging Clinician: Juliocesar Rm Patient Disposition: Home, Self-Care Activity: as tolerated Diet: as tolerated Patient Instructions: Antibiotic Form, How to Stop Smoking (DC) Stand Alone Forms: General Discharge Information Follow-up/Referrals: Katerina Gonsales MD [Physician] - 1 Week Discharge Medications: New metronidazole 500 mg Tablet 500 mg PO Q12H Qty: 14 0RF doxycycline hyclate 100 mg Tablet 100 mg PO Q12HR Qty: 14 0RF Date of admission: 03/19/23 10:36 Primary Care Provider: PHYSICIAN,WINDER OPERATOR Admitting Provider: Katerina Gonsales Attending physician on admission: Katerina Gonsales Condition: Serious
== END 2023-03-21 15:00 | disposition home or self-care (01) | DRG 759 ==
LOC: ANHED 18:54 → ANH3MEDSUR 19:16
PROVIDERS: Physician Assistant; Radiology Diagnostic Radiology; Admitting Provider Obstetrics & Gynecology; Emergency Provider Emergency Medicine; Visit Provider Obstetrics & Gynecology
PROC: 0U9 Female Reproductive System, Drainage (ICD-10-PCS; principal; 2023-03-18 15:00)
DX: N70.93 Salpingitis and oophoritis, unspecified (principal); B96.1 Klebsiella pneumoniae [K. pneumoniae] as the cause of diseases classified elsewhere; F17.210 Nicotine dependence, cigarettes, uncomplicated; E66.9 Obesity, unspecified; Z68.38 Body mass index [BMI] 38.0-38.9, adult
CPT/HCPCS: 36415; 74177; 75989; 76856; 80048; 80053; 81001; 81025; 83605; 83690; 84703; 85025; 85610; 85730; 87040; 87070; 87075; 87077; 87186; 87205; 87491; 87591; 87661; 96361; 96365; 96366; 96367; 96375; 96376; 99285; A9270; C1729; G0378; J0696; J1170; J1836; J2250; J2405; J3010; J3411; J3475; J7030; J7040; J7042; J7120; Q9967

== ENCOUNTER 2024-01-05 00:38 | Day surgery (SDC) | payer BC, SELFPAY ==
--- NOTE | 2023-12-26 16:44 | SUR.PREOP ---
Report to the Outpatient Waiting Room, entrance under the green pavilion located off [facility], at time _0700_ on date __01/05/2024__. Planned Procedure Time: _0900_.? Time changes happen often and if your time is changed the preop area will call you the afternoon before. - You and your visitor will be asked to self-screen and do not enter if you have any COVID symptoms. Please call surgeon if you need to reschedule. - A mask is optional within the hospital at this time. Patients may have clear liquids (water, carbonated beverages, clear teas, apple juice) until 3 hours prior to surgery with a maximum of 20 ounces. - No food from midnight until time of surgery and no smoking - Infants may have breast milk until 4 hours before surgery, infant formula 6 hours prior to surgery. - Children will be allowed to drink immediately following surgery.? If applicable, please bring a bottle or sippy cup to assist with drinking. Juice, water, soda, and popsicles are readily available.? For infants on formula, please bring formula the day of surgery.? Pacifiers are allowed. Take only the following medications with a SIP of water on the morning of surgery: _NA_ DO NOT STOP ANY OF YOUR OTHER PRESCRIPTION MEDICATIONS PRIOR TO SURGERY EXCEPT THE FOLLOWING Medications to discontinue per physician __Ibuprofen per Dr. Gonsales __ Date to take last dose_NA_ Please no make-up, nail brit[place] virgin islander, hairspray, perfume, deodorant, or body powder the day of surgery.? No jewelry (including any body piercings) or valuables the day of surgery, leave them at home.? Please take a shower or bath the night before, or the morning of, surgery with an antibacterial soap.? Wear comfortable, loose fitting clothing.? Children are encouraged to wear pajamas. - Jewelry must be removed prior to entering the operating room.? Rings and piercings that are not removed may be cut off. - The hospital will not accept responsibility for valuables.? - Please leave all valuables, including medications, at home the day of surgery. If you are going home after surgery, a licensed local owner operator truck driver must drive you home.? - NO public transportation without another adult if you receive anesthesia. - We recommend that an adult stay with you for 24 hours following discharge. - We also recommend that you do not drive, make important decision, drink alcoholic beverages, or take any drugs that were not prescribed by your health care provider for at least 24 hours after your discharge time. For Pediatric surgeries, we recommend two adults accompany the child home. Follow any additional instructions given to you from your surgeon. Telephone instructions given to _Lucille Ruth_and asked if any additional questions and then verbalized understanding. Patient advised to call surgeon office or pre surgery nurse liaison [phone] if any additional questions.
[2023-12-26 17:06] VITALS: BMI 41.3
--- NOTE | 2024-01-04 12:38 | PM.IMHP ---
H&P: HPI History of Present Illness Date/Time: 01/04/24 12:38 Chief Complaint: AUB Narrative: Lucille is a 48yo G0, who presents for scheduled surgery. Pap normal 04/2023. She reports her periods are regular; not too heavy or painful; 3-5 days-- but does have a significant h/o abnormal periods and PCOS. She is not having any menopausal symptoms. She is occasionally sexually active/ not on contraception. She has a h/o bilateral TOAs; right side was drained by IR 02/2023. She reports that she still has a lot of vaginal discharge, odor, and pelvic pain; but the pain is MUCH improved than it used to be. [employer] US 04/2023 showed the L pyosalpinx is still present; measuring about 5cm. EMB was attempted in office for pre-op planning; as she is wanting to proceed with total hysterectomy, but sample was unable to be obtained due to cervical stenosis. She denies fevers, chills. She realizes she will never have any children (has h/o PCOS as well) and is wanting to proceed with surgery to remove everything (after we obtain an endometrial sample). Review of Systems Constitutional: Constitutional: Denies chills, Denies fever(s) and Denies headache(s) Eyes: Eyes: Denies change in vision ENT: Denies dizziness and Denies headache(s) Cardiovascular: Cardiovascular: Denies chest pain and Denies dyspnea Respiratory: Respiratory: Denies cough and Denies dyspnea Gastrointestinal: Gastrointestinal: Denies abdominal pain and Denies change in stool character Genitourinary: Genitourinary: Denies abnormal menses, Reports pelvic pain, Reports vaginal discharge, Denies vaginal odor and Denies vaginal pruritus Neurologic: Denies dizziness and Denies headache(s) Psychiatric: Psychiatric: Denies anxiety and Denies depression [facility] Surgical History Surgical History History of gynecologic surgery ovarian TOA (tubo-ovarian abscess): Social History Social History (Updated 05/20/23 @ 10:46 by Elisa Eason MA) Smoking status: Never smoker Smokeless tobacco user: other Second hand tobacco smoke exposure: No Alcohol intake: former Substance use: current Substance use type: marijuana Last use: 9/6/24 Do You Feel Safe in your Home?: Yes Lack of Transportation: No Lack of Food: Never True Current Housing: I Have Housing Concerned About Future Housing: No Difficulty Paying Gas/Electric Bills: No Difficulty Paying for Meds: No Currently Unemployed: No Education: High School Diploma/GED Difficulty w/ Childcare or Family Care: No Living arrangements: with family Additional living arrangements comments: wiht and step son Occupation/Education: occupation Gender identity (if verbalized by the patient): Female Sexual Orientation (if Verbalized by the Patient): Straight or Heterosexual Spiritual care concerns: No Meds Home Medications and Allergies Home Medications Medication Instructions Recorded Confirmed Type acetaminophen 500 mg PO PRN 12/26/23 12/26/23 History albuterol sulfate 90 mcg/actuation 90 mcg inhalation PRN 12/26/23 12/26/23 History aerosol inhaler ibuprofen 400 mg PO PRN 12/26/23 12/26/23 History Allergies Allergy/AdvReac Type Severity Reaction Status Date / Time erythromycin base Allergy Unknown TOLD Verified 12/26/23 16:51 CHILD aspirin Allergy Unknown Verified 12/26/23 16:51 Exam Const: General: cooperative, healthy appearing, comfortable, no acute distress and obese Orientation/consciousness: patient oriented x3 Resp: Effort & Inspection: normal respiratory effort Cardio: Rate: regular rate GI: Inspection: normal to inspection GI Palp: No abdominal tenderness and Yes Soft to palpation : Other: deferred to OR Skin: General skin exam: normal color Neuro: General: patient oriented x3 Extrem: General: normal to inspection Psych: Appearance: grossly normal Affect: normal affect Attitude: coope
--- NOTE | 2024-01-05 06:35 | WPDHPUPDATE1 ---
History and Physical Update Update Date/Time: 01/05/24 06:35 History and Physical has been reviewed, including an updated exam of the patient. There are NO changes in the patient's condition. Risks, benefits, and alternatives have been discussed and questions answered. Patient agrees to proceed with hysteroscopy with D&C.
--- NOTE | 2024-01-05 08:23 | P.PNAN_ITS ---
Anes - Initial Pre Proc Eval Procedure: Operation Date: 01/05/24 09:00 Proposed Procedures p Hysteroscopy Dilation and Curettage - Katerina Gonsales MD Date/Time: 01/05/24 08:23 Surgeon: Katerina Gonsales MD Pre Op Diagnosis: Abnormal Uterine Bleeding Patient Data Age: 48 Gender: F Height: 1.63 m Weight: 109.2 kg Allergies Allergy/AdvReac Type Severity Reaction Status Date / Time erythromycin base Allergy Unknown TOLD Verified 12/26/23 16:51 CHILD aspirin Allergy Unknown Verified 12/26/23 16:51 Home Medications Medication Instructions Recorded Confirmed Type acetaminophen 500 mg PO PRN 12/26/23 12/26/23 History albuterol sulfate 90 mcg/actuation 90 mcg inhalation PRN 12/26/23 12/26/23 History aerosol inhaler ibuprofen 400 mg PO PRN 12/26/23 12/26/23 History Patient hx anesthesia problems: none Family hx anesthesia problems: none Results Review: All pre-operative results and documents have been reviewed as part of the pre- operative evaluation. [facility] Surgical History Surgical History History of gynecologic surgery ovarian TOA (tubo-ovarian abscess): Social History Social History Smoking status: Never smoker Smokeless tobacco user: other Second hand tobacco smoke exposure: No Alcohol intake: former Substance use: current Substance use type: marijuana Last use: 12/26/23 Do You Feel Safe in your Home?: Yes Lack of Transportation: No Lack of Food: Never True Current Housing: I Have Housing Concerned About Future Housing: No Difficulty Paying Gas/Electric Bills: No Difficulty Paying for Meds: No Currently Unemployed: No Education: High School Diploma/GED Difficulty w/ Childcare or Family Care: No Living arrangements: with family Additional living arrangements comments: wiht and step son Occupation/Education: occupation Gender identity (if verbalized by the patient): Female Sexual Orientation (if Verbalized by the Patient): Straight or Heterosexual Spiritual care concerns: No Anes - Eval Final PreProcedure Day of Procedure 01/05/24 08:23 Patient weight: morbidly obese Heart: regular rate and rhythm Lungs: clear to auscultation Airway: Mallampati scale class II Neurological: alert and oriented Last oral intake: >/= 8 hours ASA classification: III Emergent: no Anesthetic plan: proceed Anesthesia type and monitoring: general GIVS and standard monitoring Results Review: All pre-operative results and documents have been reviewed as part of the pre- operative evaluation. Informed Consent: The patient's anesthetic plan and its attendant risks and benefits were discussed with the patient/family/POA. Questions were solicited and answers provided to the satisfaction of the patient/family/POA.
[2024-01-05 08:30] VITALS: BP 151/95; PULSE 75; RESP 14; TEMP 36.4; O2SAT 99
[2024-01-05] MEDS: ACETAMINOPHEN 500 MG TABLET 1000 MG PO (08:30)
[2024-01-05] MEDS: LACTATED RINGERS 1,000 ML 30 ML IV CONT (08:45)
[2024-01-05 08:57] LABS: BEDSIDEPREGUCG Negative (Negative)
--- NOTE | 2024-01-05 09:43 | W.PM.PROC2 ---
Procedure Note - Detailed Date of Procedure 01/05/24 Pre-op Diagnosis Abnormal Uterine Bleeding Pelvic pain Post-op Diagnosis Same Procedure Performed Hysteroscopy with D&C Surgeon Katerina Gonsales MD Anesthesia MAC Findings Uterus sharply anteverted, minimal descensus/mobility noted; cervical stenosis. Uterus sounded to 8 cm. Endometrial sampling collected using the Aveta tissue shaver. Normal endometrial cavity with normal appearing endometrium, bilateral tubal ostia visualized. Good hemostasis at end of case. Fluid deficit of 40cc. Anesthesia stated that patient had an oxygen saturation of 79-92% during surgery; would recommend that she stop smoking. Description of Procedure Lucille was taken to the operating room where she was placed under sedation without complications. She was then prepped and draped in the usual sterile fashion in the dorsal lithotomy position with her legs in low Blair stirrups. A time-out was performed and no perioperative antibiotics were indicated. A bivalve speculum was placed within the vagina where the cervix was identified under the pubic bone; the uterus was sharply anteverted. The anterior lip of the cervix was grasped with a single-tooth tenaculum. The cervix was found to be stenotic but slowly serially dilated to allow for the hysteroscope. The speculum was removed from the vagina in order to lower the hysteroscope and it was slowly advanced into the uterine cavity with the above findings noted. Due to the sharply anteverted nature and cervical stenosis, the Aveta tissue shaver was used to obtain an endometrial sampling; as I did not feel like I would be able to get the curettage within the uterus and be able to obtain an adequate sample. Good hemostasis was noted. All instruments were removed from the vagina. Sponge, lap, instrument, and needle counts were correct at the end of the procedure. Patient was awoken from anesthesia and taken to recovery with plans of same-day discharge home. Estimated Blood Loss 5 IV Fluids 800 Pathology Yes (endometrial shavings) Complications No immediate complications Condition Stable Disposition Same day [facility] Billing Surgery - Charge Forward: Surgery Billing
[2024-01-05 09:46] VITALS: BP 151/87; PULSE 66; RESP 15; O2SAT 95
[2024-01-05 10:15] VITALS: BP 121/67; PULSE 61
[2024-01-05 10:45] VITALS: BP 114/85; PULSE 68; RESP 18
== END 2024-01-05 10:55 | disposition home or self-care (01) ==
PROVIDERS: Visit Provider Obstetrics & Gynecology
PROC: 0U5B8ZZ Destruction of Endometrium, Via Natural or Artificial Opening Endoscopic (ICD-10-PCS; CPT 58563; principal; 2024-01-05 09:00)
DX: N88.2 Stricture and stenosis of cervix uteri (principal); F12.90 Cannabis use, unspecified, uncomplicated; E28.2 Polycystic ovarian syndrome; E66.01 Morbid (severe) obesity due to excess calories; Z68.39 Body mass index [BMI] 39.0-39.9, adult; Z79.51 Long term (current) use of inhaled steroids; Z79.1 Long term (current) use of non-steroidal anti-inflammatories (NSAID); Z98.890 Other specified postprocedural states
CPT/HCPCS: 58558; 88305; A9270; J2250; J2704; J3010; J7120

== ENCOUNTER 2024-01-12 17:10 | Inpatient (IN) | payer BC, SELFPAY ==
--- NOTE | ~2024-01-12 | XR_ITS ---
XR chest 2V Ordering provider: Ada Kendall PA-C History: 48 years Female with . fever AFTER D AND C ON 01-05-24 . Comparison: None. FINDINGS: MEDIASTINUM: The cardiac silhouette is not enlarged. LUNGS: No infiltrates, effusions or pneumothorax. OTHER: No free air under the diaphragm. Degenerative changes of the spine. IMPRESSION: No acute cardiopulmonary pathology. Reviewed, dictated and finalized at location A.
--- NOTE | ~2024-01-12 | CT_ITS ---
EXAMINATION: CT guide absc cath placement DATE: 01/13/2024 12:33 INDICATION: Left tubo-ovarian abscess. TECHNIQUE: The procedure including the risks, benefits, and alternatives was discussed with the patie nt. Risks discussed included bleeding and infection. The patient understood the risks and benefits an d agreed to proceed. The skin overlying the abdomen was prepped and draped in usual sterile fashion. Anesthetic was administered with 1% lidocaine subcutaneously. Moderate sedation was achieved with 1 mg Versed IV and 50 mcg fentanyl IV. An 18 gauge trochar needle was inserted into the left tubo-ovar jasmina abscess with CT guidance. The needle was exchanged over a wire for 5 [place] and 7 [place] dilators and then for an 8.5 [place] pigtail catheter. The catheter was stitched to the skin, and a sterile dr essing was applied. The mA was adjusted according to patient size. Iterative reconstruction technique was employed. The dose-length product was 300.40 mGy-cm. There were no immediate complications. FINDINGS: CT images demonstrate the catheter within the left tubo-ovarian abscess. 8 mL fluid was asp irated for testing. IMPRESSION: 1. Successful CT-guided left tubo-ovarian abscess drainage. 2. 8 mL red-ascencio fluid was sent for aerobic and anaerobic cultures. Reviewed, dictated and finalized at location A.
--- NOTE | ~2024-01-12 | CT_ITS ---
EXAMINATION: CT abdomen pelvis w con DATE: 01/12/2024 18:48 INDICATION: Fever post D&C TECHNIQUE: Computed tomography (CT) of the abdomen and pelvis was performed with 100 mL Omnipaque-350 intravenous contrast. Automated exposure control and iterative reconstruction technique were employe d. The dose-length product was 1424.96 mGy-cm. COMPARISON: 03/17/2023 FINDINGS: Interval dependent atelectasis in the right lower lobe. Heart size is normal. No pericardial or pleur al effusion. Unchanged small region of focal hepatic steatosis at the ligamentum teres. Cholecystecto my clips the gallbladder fossa. Spleen, pancreas, bilateral adrenal glands and right kidney are gardenia l. Subtle 7 mm lesion at the lower pole of the left kidney with slightly lower attenuation/enhancemen t in the surrounding renal parenchyma. Bowels including the appendix are normal. Partially decompress ed bladder and the anteverted uterus are normal. There are bilateral hydrosalpinges, relatively mild and decrease in size on the right and 4 prominent than with interval increase in size on the left whe re it is dilated to 5.3 cm in diameter. Mild fat stranding in the deep pelvis with minimal amount flu id in the cul-de-sac and along the left hydrosalpinx. No abscess or free intraperitoneal gas. No path ologically enlarged abdominal or pelvic lymphadenopathy. Mild thoracolumbar levocurvature with0 moder ate lower thoracic and severe lumbar spondylosis. IMPRESSION: 1. Bilateral hydrosalpinges, small and with interval decrease in size on the right and significantly larger and with interval increase in size on the left where it measures up to 5.3 cm in diameter. The kern of the left hydrosalpinx. Thickened there is mild stranding in the pelvis which raises some co ncern for a left pyosalpinx (tubo-ovarian abscess). Reviewed, dictated and finalized at location A. IMPRESSION: 1. Bilateral hydrosalpinges, small and with interval decrease in size on the ri ght and significantly larger and with interval increase in size on the left whe re it measures up to 5.3 cm in diameter. The kern of the left hydrosalpinx. Th ickened there is mild stranding in the pelvis which raises some concern for a l eft pyosalpinx (tubo-ovarian abscess).
[2024-01-12 17:13] VITALS: BP 137/87; PULSE 79; RESP 18; TEMP 36.8; O2SAT 98
[2024-01-12 17:22] VITALS: BP 130/77; PULSE 74; RESP 15; TEMP 37.5; O2SAT 97
[2024-01-12 17:26] VITALS: BP 111/84; PULSE 83; RESP 18; O2SAT 98
[2024-01-12 17:31] VITALS: BP 130/77; PULSE 72; RESP 22; O2SAT 97
[2024-01-12 18:12] LABS: Basophils Absolute Auto 0.1 K/mm3 (0.0-0.1); Basophils Percent Auto 0.5 % (0.2-1.2); Eosinophils Absolute Auto 0.2 K/mm3 (0-0.3); Eosinophils Percent Auto 1.1 % (0-4.4); Hematocrit 41.9 % (37.0-47.0); Hemoglobin 13.5 g/dL (12.0-15.0); Immature Granulocyte Absolute 0.09 K/mm3 (0.00-0.031); Immature Granulocyte Percent A 0.6 % (0-0.5); Lymphocytes Absolute Auto 3.38 K/mm3 (0.9-3.2); Lymphocytes Percent Auto 22.3 % (18.3-44.2); Mean Corpuscular HGB Conc 32.2 g/dl (32-36); Mean Corpuscular Hemoglobin 27.8 pg (26-34); Mean Corpuscular Volume 86.2 fl (80-100); Mean Platelet Volume 9.7 fl (7.4-10.4); Monocytes Absolute Auto 1.2 K/mm3 (0.1-0.6); Monocytes Percent Auto 8.2 % (2.6-8.5); Neutrophils Absolute Auto 10.2 K/mm3 (1.3-6.7); Neutrophils Percent Auto 67.3 % (45.5-73.1); Platelet Count Result 387 k/mm3 (150-375); Red Blood Count 4.86 M/mm3 (4.2-5.4); Red Cell Distribution Width 14.1 % (11.5-14.5); White Blood Count 15.2 K/mm3 (4.5-10.0)
[2024-01-12 18:17] LABS: Influenza A QL RT-PCR Negative (Negative); Influenza B QL RT-PCR Negative (Negative); RSV RNA, RT-PCR Negative (Negative); SARS-CoV-2 RNA PCR Negative (Negative)
[2024-01-12 18:25] LABS: Alanine Aminotransferase 29 U/L (6-35); Albumin Level 4.1 g/dL (3.5-5.1); Alkaline Phosphatase 125 U/L (38-126); Anion Gap 11 mmol/L (4-12); Aspartate Amino Transferase 31 U/L (14-36); Bilirubin,Total 0.9 mg/dL (0.2-1.3); Blood Urea Nitrogen 12 mg/dL (7-17); Calcium 8.9 mg/dL (8.4-10.2); Carbon Dioxide 26 mmol/L (22-30); Chloride 100 mmol/L (98-107); Estimated CRCL calculation 97 ml/min; Estimated Glomerular Filt Rate > 60; Glucose 100 mg/dL (65-110); Potassium 3.8 mmol/L (3.4-5.0); Sodium 137 mmol/L (137-145)
--- NOTE | 2024-01-12 18:28 | ED.GENADULT ---
HPI - General Adult General Chief complaint: Unspecified Stated complaint: had D&C 01/04 and has had fevers Dr told her come Time Seen by Provider: 01/12/24 17:23 History of Present Illness HPI narrative: 48-year-old female with history of TOA back in February 2023 (right sided drained by IR on 02/2023) and PCOS presents to the emergency department for a fever for approximately 5 days. Patient had hysteroscopy with D&C performed [address] Gonsales. She had a pelvic ultrasound performed in April which showed left pile salpinx measuring about 5 cm. Patient was desiring have a full hysterectomy however EMB bx was unsuccessful in OBGYN office due to cervical stenosis, therefore patient underwent a hysteroscopy with D&C 7 days ago to obtain the sample. Per operative note, there was no immediate complications. The patient was discharged home the same day. States 2 days after the procedure she began having fevers with a T-max of 103?. She reports associated generalized malaise and fatigue as well as vomiting and diarrhea. States she has had 1 soft bowel movement a day for the past couple of days. She has been taking Tylenol with improvement. Last dose was 2:30 p.m. today. She contacted Dr. Gonsales' office and was advised to take COVID test at home and come to the ED if it was negative. COVID testing was negative so patient presented for further evaluation. She reports some slight suprapubic soreness, otherwise denies abdominal pain, cough congestion. Denies vaginal discharge and dysuria. She started her menstrual cycle yesterday. Related Data Home Medications Medication Instructions Recorded Confirmed albuterol sulfate 90 mcg/actuation 90 mcg inhalation DAILY 12/26/23 01/12/24 aerosol inhaler Allergies Allergy/AdvReac Type Severity Reaction Status Date / Time erythromycin base Allergy Unknown TOLD Verified 01/12/24 19:26 CHILD aspirin Allergy Unknown Verified 01/12/24 19:26 Review of Systems Review of Systems: All systems reviewed & are unremarkable except as noted in HPI and below PMFSH Surgical History Surgical History History of gynecologic surgery ovarian TOA (tubo-ovarian abscess): History of hysteroscopy (01/05/24) Hysteroscopy with D&C / Benign Family History Family History (Updated 01/12/24 @ 19:50 by Sandra Montenegro RN) Mother Diabetes mellitus Hypertension Grandparent Breast cancer Social History Social History Smoking status: Never smoker Smokeless tobacco user: other Second hand tobacco smoke exposure: No Alcohol intake: former Substance use: current Substance use type: marijuana Last use: 12/26/23 Do You Feel Safe in your Home?: Yes Lack of Transportation: No Lack of Food: Never True Current Housing: I Have Housing Concerned About Future Housing: No Difficulty Paying Gas/Electric Bills: No Difficulty Paying for Meds: No Currently Unemployed: No Education: High School Diploma/GED Difficulty w/ Childcare or Family Care: No Living arrangements: with family Additional living arrangements comments: wiht and step son Occupation/Education: occupation Gender identity (if verbalized by the patient): Female Sexual Orientation (if Verbalized by the Patient): Straight or Heterosexual Spiritual care concerns: No Exam Narrative: GENERAL: Well-appearing, well-nourished, and in no acute distress. HEAD: Normocephalic, atraumatic. EYES: PERRLA and EOMI. ENT: Nares clear, no rhinorrhea or epistaxis. Mucous membranes moist. NECK: Supple. CHEST: Clear to auscultation. No respiratory distress. HEART: Regular rate and rhythm. No murmur heard. Normal peripheral pulses. ABDOMEN: Soft, nontender, nondistended, normal active bowel sounds. EXTREMITIES: Normal range of motion. No edema. SKIN: Warm, dry, no rash. NEURO: N
[2024-01-12 18:34] LABS: Add Urine Microscopic? YES; Appearance Urine Turbid (Clear); Bacteria Urine None Seen /hpf; Bilirubin Urine 2+ (Negative); Blood Urine 3+ (Negative); Color Urine Dark Yellow (Yellow); Glucose Urine UA Negative (Negative); Ketones Urine 1+ mg/dL (Negative); Leukocyte Esterase Ur 1+ LEU/UL (Negative); Need Manual Microscopic Reviewed; Nitrate Urine Negative (Negative); Protein Urine 2+ mg/dL (Negative); RBC Urine 51-100 /hpf (0-2); Specific Grav Ur 1.039 (1.001-1.035); Squamous Epithelial Cell Urine Few /hpf (Few); WBC Urine 51-100 /hpf (0-3); pH Urine 5.5 (5.0-9.0)
[2024-01-12 18:37] LABS: Lactic Acid Reflex 0.8 mmol/L (0.7-2.0)
--- NOTE | 2024-01-12 18:44 | PC.NURSE ---
Pt off floor for imaging. Will administer ordered medications when pt returns.
[2024-01-12] MEDS: ONDANSETRON INJ 4 MG/2 ML VIAL IV PUSH (18:49)
[2024-01-12] MEDS: SODIUM CHLORIDE 0.9% IV 1,000 ML 999 ML IV CONT (18:50)
[2024-01-12 19:00] LABS: CRP 19.6 mg/dL (<1.0); Lipase 34 U/L (23-300)
[2024-01-12 19:22] LABS: Erythrocyte Sedimentation Rate 21 mm/hr (0-20)
[2024-01-12] MEDS: cefoTEtan DISODIUM INJ 2 GM in DEXTROSE 5% IN WATER 50 ML IVPB (19:37)
[2024-01-12 20:27] VITALS: BP 146/71; PULSE 83; RESP 19; TEMP 36.8; O2SAT 91
[2024-01-12 20:28] VITALS: BMI 38.9
--- NOTE | 2024-01-12 20:30 | ADMGEN ---
This patient, Lucille Ruth, was admitted to [facility] Surg Room 314-02. Patient/family oriented to hospital policies and general routines including ID bracelet, bed and alarms, visiting hours, pain management, procedures, bathroom and other care routines, personal items, smoking policy, room service/diet, and visiting hours. Information on how to activate the Rapid Response Team has been discussed. Patient/Family are encouraged to report perceived risks to care and to ask questions if they do not understand what they are told or what they should do.
[2024-01-12] MEDS: DOXYCYCLINE 100 MG/NS 100 ML 100 MG/100 ML BAG IVPB (20:53)
[2024-01-12] MEDS: SODIUM CHLORIDE 0.9% IV 1,000 ML 125 ML IV CONT (20:53)
[2024-01-13] VITALS (12 sets, daily range): BP systolic 105–147; BP diastolic 66–95; PULSE 54–77; RESP 12–20; TEMP 36.6–37.1; O2SAT 95–100
--- NOTE | 2024-01-13 05:42 | PM.IMHP ---
H&P: HPI History of Present Illness Date/Time: 01/13/24 05:45 Chief Complaint: fevers Narrative: Lucille is a 48yo G0, LMP 01/10/24 who presented to the ER with 5 days of fever, as high at 103. She recently underwent HSC/D&C on 01/05/24 to obtain endometrial sampling (after failed in office EMB) for surgical planning for plans of total hysterectomy. In the ER, she was found to have a WBC of 15k and CT scan shows the Left pyosalpinx had increased in size (now >5cm) with fat stranding noticed in the pelvis. She is currently on her period and denies noticing any overt changes to her vaginal discharge. She also has a UTI. She has a h/o bilateral TOAs; right side was drained by IR 02/2023 and she had a prolonged stay for IV antibiotics. She followed up outpatient and continued to report that she still had a lot of vaginal discharge, odor, and pelvic pain; but the pain was MUCH improved than it used to be. 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 She then completed additional PO antibiotics at that time (04/2023) and continued to feel improved without any fevers, chills or overt bowel/bladder changes and no changes to her vaginal discharge She had a normal pap 04/2023. She reports her periods are regular; not too heavy or painful; 3-5 days-- but does have a significant h/o abnormal periods and PCOS. She is not having any menopausal symptoms. She is occasionally sexually active/ not on contraception. Review of Systems Constitutional: Constitutional: Reports chills, Reports fever(s), Reports malaise and Reports poor appetite Cardiovascular: Cardiovascular: Denies chest pain and Denies rapid heart rate Respiratory: Respiratory: Denies cough and Denies dyspnea Gastrointestinal: Gastrointestinal: Denies constipation, Reports diarrhea, Reports nausea and Denies vomiting Genitourinary: Genitourinary: Denies abnormal vaginal bleeding, Denies dysuria, Reports pelvic pain, Reports vaginal discharge and Denies vaginal odor Neurologic: Denies dizziness and Denies headache(s) [facility] Surgical History Surgical History History of gynecologic surgery ovarian TOA (tubo-ovarian abscess): History of hysteroscopy (01/05/24) Hysteroscopy with D&C / Benign Family History Family History (Updated 01/12/24 @ 19:50 by Sandra Montenegro RN) Mother Diabetes mellitus Hypertension Grandparent Breast cancer Social History Social History Smoking status: Never smoker Smokeless tobacco user: other Second hand tobacco smoke exposure: No Alcohol intake: former Substance use: current Substance use type: marijuana Last use: 01/03/24 Do You Feel Safe in your Home?: Yes Lack of Transportation: No Lack of Food: Never True Current Housing: I Have Housing Concerned About Future Housing: No Difficulty Paying Gas/Electric Bills: No Difficulty Paying for Meds: No Currently Unemployed: No Education: High School Diploma/GED Difficulty w/ Childcare or Family Care: No Living arrangements: with family Additional living arrangements comments: wiht and step son Occupation/Education: occupation Gender identity (if verbalized by the patient): Female Sexual Orientation (if Verbalized by the Patient): Straight or Heterosexual Spiritual care concerns: No Meds Home Medications and Allergies Home Medications Medication Instructions Recorded Confirmed Type albuterol sulfate 90 mcg/actuation 90 mcg inhalation DAILY 12/26/23 01/12/24 History aerosol inhaler Allergies Allergy/AdvReac Type Severity Reaction Status Date / Time erythromycin base Allergy Unknown TOLD Verified 01/12/24 19:26 CHILD aspirin Allergy Unknown Verified 01/12/24 19:26 Vital Signs Vital Signs - 24 hr 01/12/24 17:13 01/12/24 17:22 01/12/24 17:26 Temperature 98.3 F 99.5 F Pu
[2024-01-13] MEDS: ACETAMINOPHEN 325 MG TABLET 650 MG PO ×2 (05:51→19:57)
[2024-01-13] MEDS: SODIUM CHLORIDE 0.9% IV 1,000 ML 125 ML IV CONT (05:51)
[2024-01-13 06:31] LABS: Basophils Percent Auto 0.3 % (0.2-1.2); Eosinophils Absolute Auto 0.3 K/mm3 (0-0.3); Eosinophils Percent Auto 2.3 % (0-4.4); Hematocrit 38.4 % (37.0-47.0); Hemoglobin 12.3 g/dL (12.0-15.0); Immature Granulocyte Absolute 0.06 K/mm3 (0.00-0.031); Immature Granulocyte Percent A 0.5 % (0-0.5); Lymphocytes Absolute Auto 1.99 K/mm3 (0.9-3.2); Lymphocytes Percent Auto 17.2 % (18.3-44.2); Mean Corpuscular Volume 87.5 fl (80-100); Mean Platelet Volume 9.7 fl (7.4-10.4); Monocytes Absolute Auto 0.9 K/mm3 (0.1-0.6); Monocytes Percent Auto 7.4 % (2.6-8.5); Neutrophils Absolute Auto 8.3 K/mm3 (1.3-6.7); Neutrophils Percent Auto 72.3 % (45.5-73.1); Platelet Count Result 350 k/mm3 (150-375); Red Blood Count 4.39 M/mm3 (4.2-5.4); White Blood Count 11.6 K/mm3 (4.5-10.0)
[2024-01-13 06:46] LABS: Alanine Aminotransferase 22 U/L (6-35); Albumin Level 3.5 g/dL (3.5-5.1); Alkaline Phosphatase 112 U/L (38-126); Anion Gap 10 mmol/L (4-12); Aspartate Amino Transferase 22 U/L (14-36); Bilirubin,Total 0.4 mg/dL (0.2-1.3); Blood Urea Nitrogen 9 mg/dL (7-17); Calcium 8.2 mg/dL (8.4-10.2); Carbon Dioxide 25 mmol/L (22-30); Chloride 103 mmol/L (98-107); Estimated CRCL calculation 98 ml/min; Estimated Glomerular Filt Rate > 60; Glucose 115 mg/dL (65-110); Potassium 3.6 mmol/L (3.4-5.0); Sodium 138 mmol/L (137-145)
[2024-01-13 06:48] LABS: INR 1.2
[2024-01-13 06:49] LABS: Partial Thromboplastin Time 32.9 Seconds (22.3-36.8)
[2024-01-13] MEDS: DOXYCYCLINE 100 MG/NS 100 ML 100 MG/100 ML BAG IVPB ×2 (08:29→19:53)
[2024-01-13] MEDS: cefoTEtan DISODIUM INJ 2 GM in DEXTROSE 5% IN WATER 50 ML IVPB ×2 (08:32→19:52)
--- NOTE | 2024-01-13 11:41 | WPDMODSED ---
Moderate Sedation Note-Pt Data Patient Data Diagnosis: Left tubo-ovarian abscess. Present Complaint: Left tubo-ovarian abscess. Procedure to be performed/Plan: CT-guided left tubo-ovarian abscess drainage. Allergies Allergy/AdvReac Type Severity Reaction Status Date / Time erythromycin base Allergy Unknown TOLD Verified 01/12/24 19:26 CHILD aspirin Allergy Unknown Verified 01/12/24 19:26 Home Medications Medication Instructions Recorded Confirmed Type albuterol sulfate 90 mcg/actuation 90 mcg inhalation DAILY 12/26/23 01/12/24 History aerosol inhaler Current Medications: Active Medications Acetaminophen (Acetaminophen 325 Mg Tablet) 650 mg PO Q4H PRN PRN Reason: Mild Pain (1-3) or Fever Last Admin: 01/13/24 05:51 Dose: 650 mg Cefotetan Disodium 2 gm/ (Dextrose) 50 mls @ 100 mls/hr IVPB Q12HR EDMAR Last Infusion: 01/13/24 09:02 Dose: Infused Doxycycline Hyclate (Vibramycin 100 Mg/Ns 100 Ml) 100 mg in 100 mls @ 100 mls/hr IVPB Q12H EDMAR Last Admin: 01/13/24 08:29 Dose: 100 mls/hr Sodium Chloride (Normal Saline Iv) 1,000 mls @ 125 mls/hr IV CONT .Q8H EDMAR Last Admin: 01/13/24 05:51 Dose: 125 mls/hr Morphine Sulfate (Morphine Sulfate (*Crx) 4 Mg/Ml Inj) 4 mg IV PUSH Q2H PRN PRN Reason: Pain Rated 7-10 Ondansetron HCl (Ondansetron Inj 4 Mg/2 Ml Vial) 4 mg IV PUSH Q4H PRN PRN Reason: Nausea Sedation/Anesthesia: No previous sedation/anesthesia problems (including family history). [facility] Surgical History Surgical History History of gynecologic surgery ovarian TOA (tubo-ovarian abscess): History of hysteroscopy (01/05/24) Hysteroscopy with D&C / Benign Family History Family History (Updated 01/12/24 @ 19:50 by Sandra Montenegro RN) Mother Diabetes mellitus Hypertension Grandparent Breast cancer Social History Social History Smoking status: Never smoker Smokeless tobacco user: other Second hand tobacco smoke exposure: No Alcohol intake: former Substance use: current Substance use type: marijuana Last use: 01/03/24 Do You Feel Safe in your Home?: Yes Lack of Transportation: No Lack of Food: Never True Current Housing: I Have Housing Concerned About Future Housing: No Difficulty Paying Gas/Electric Bills: No Difficulty Paying for Meds: No Currently Unemployed: No Education: High School Diploma/GED Difficulty w/ Childcare or Family Care: No Living arrangements: with family Additional living arrangements comments: wiht and step son Occupation/Education: occupation Gender identity (if verbalized by the patient): Female Sexual Orientation (if Verbalized by the Patient): Straight or Heterosexual Spiritual care concerns: No Mod Sed Physical Exam Physical Exam Pre Procedural Exam: Normal: Lungs, Heart Rate, Heart Rhythm and Abdomen and Variation: Appearance (Obese.) Hours since solid foods: 12 Hours since liquid intake: 12 Mallampati Classification: class 1 Internal Medicine - PN: Obj Da Vital Signs Vital Signs: Vital Signs - 24 hr 01/12/24 17:13 01/12/24 17:22 01/12/24 17:26 Temperature 36.8 C 37.5 C Pulse Rate 79 74 83 Respiratory Rate 18 15 18 Blood Pressure 137/87 130/77 111/84 Pulse Oximetry 98 97 98 Oxygen Delivery Room Air 01/12/24 17:31 01/12/24 20:27 01/13/24 05:27 Temperature 36.8 C 36.8 C Pulse Rate 72 83 64 Respiratory Rate 22 H 19 18 Blood Pressure 130/77 146/71 H 113/66 Pulse Oximetry 97 91 96 Oxygen Delivery 01/13/24 08:00 Temperature Pulse Rate Respiratory Rate Blood Pressure Pulse Oximetry Oxygen Delivery Room Air Intake/Output Intake/Output: Intake & Output 01/10/24 01/11/24 01/12/24 01/13/24 23:59 23:59 23:59 23:59 Intake Total 1150 1050 Balance 1150 1050 Meds/Results Medications: Active Medications Generic Name
--- NOTE | 2024-01-13 13:07 | SUR.PHASEII ---
1250-bedside report with nurse yoselin. pt awake & balert after ct drain placement. drain in place lt lower abd and draining well. iv site patent/intact. pt denies pain
[2024-01-13] MEDS: ONDANSETRON INJ 4 MG/2 ML VIAL IV PUSH (16:34)
[2024-01-14 05:27] VITALS: BP 118/72; PULSE 57; RESP 18; TEMP 36.3; O2SAT 94
[2024-01-14 06:24] LABS: Basophils Percent Auto 0.5 % (0.2-1.2); Eosinophils Absolute Auto 0.3 K/mm3 (0-0.3); Eosinophils Percent Auto 3.3 % (0-4.4); Hematocrit 38.1 % (37.0-47.0); Hemoglobin 12.2 g/dL (12.0-15.0); Immature Granulocyte Absolute 0.05 K/mm3 (0.00-0.031); Immature Granulocyte Percent A 0.6 % (0-0.5); Lymphocytes Absolute Auto 1.97 K/mm3 (0.9-3.2); Lymphocytes Percent Auto 22.9 % (18.3-44.2); Mean Corpuscular Volume 87.6 fl (80-100); Mean Platelet Volume 9.5 fl (7.4-10.4); Monocytes Absolute Auto 0.6 K/mm3 (0.1-0.6); Monocytes Percent Auto 6.7 % (2.6-8.5); Neutrophils Absolute Auto 5.7 K/mm3 (1.3-6.7); Platelet Count Result 380 k/mm3 (150-375); Red Blood Count 4.35 M/mm3 (4.2-5.4); Red Cell Distribution Width 14.1 % (11.5-14.5); White Blood Count 8.6 K/mm3 (4.5-10.0)
--- NOTE | 2024-01-14 06:27 | PM.GYNPNOP ---
MUSIC THERAPIST - A/P Assessment and plan (1) TOA (tubo-ovarian abscess): Code(s): N70.93 - Salpingitis and oophoritis, unspecified Status: Acute Plan - S/p IR drain placement into L TOA/pyosalpinx on 01/13/24 - Drain output: 90cc/day - Cultures: - Blood: negative to date - Urine: 10-49 k CFU gram neg bacilli, susceptibilities pending - Abscess: pending - Continue Cefotetan 2g IV q12h + Doxycycline 100mg IV q12h - Tylenol PRN fever - Percocet PRN pain - Bowel regimen + Zofran PRN - Regular diet - Labs daily; WBC 15k --> 11k --> 8.6 - SCD's. Lovenox 40mg sq daily, ambulation encouraged - Plan: 48-72 hours of IV antibiotics until abscess cultures/sensitivities result then plan to transition to PO antibiotics if downtrending WBC, afebrile, and symptoms improving; likely will remain admitted this week Postoperative Procedures: Procedures Operation Date: 01/13/24 12:00 Actual Procedure Side Surgeon p Computed Tomography Guided Abscess Catheter Placement Franc Call MD Postoperative day: 1 Time Spent With Patient Time: Total time spent is greater than 50% in coordination of care (as documented) at patient's floor/unit and/or counseling patient: Time with patient: less than 15 minutes MUSIC THERAPIST- PN:Subj Post-Op Subjective Date/time seen: 01/14/24 07:18 Interval history: Lucille reports no issues overnight. She had the drain placed 01/12/24-- having output. Her pelvic pain is controlled. She denies any fevers or chills. She denies any vaginal discharge or bleeding. She tolerated regular diet. No nausea/vomiting. Urinating and passing gas; BM, loose on 01/13/24. Review of Systems Constitutional: Constitutional: Denies chills, Denies fever(s), Denies headache(s) and Denies malaise Eyes: Eyes: Denies change in vision Cardiovascular: Cardiovascular: Denies chest pain and Denies rapid heart rate Respiratory: Respiratory: Denies cough and Denies dyspnea Gastrointestinal: Gastrointestinal: Denies abdominal pain, Denies diarrhea, Denies nausea and Denies vomiting Genitourinary: Genitourinary: Denies abnormal vaginal bleeding, Denies dysuria, Reports pelvic pain (-- mild) and Denies vaginal discharge Exam Const: General: cooperative, comfortable, no acute distress and obese Resp: Effort & Inspection: normal respiratory effort Auscultation: clear to auscultation bilaterally Cardio: Rate: regular rate GI: GI Palp: No abdominal tenderness and Yes Soft to palpation Auscultation: normal bowel sounds Other: LLQ drain with yellow serous drainage noted in bag : Speculum Exam - Vagina: normal vaginal discharge and No vaginal bleeding Skin: General skin exam: normal color Neuro: General: patient oriented x3 Extrem: General: normal to inspection Psych: Appearance: grossly normal Affect: normal affect Attitude: cooperative MUSIC THERAPIST - PN: Obj Data Vital Signs Vital Signs: Vital Signs - 24 hr 01/13/24 05:27 01/13/24 08:00 01/13/24 12:05 Temperature 98.3 F Pulse Rate 64 67 Respiratory Rate 18 14 Blood Pressure 113/66 105/67 Pulse Oximetry 96 98 Oxygen Delivery Room Air Room Air Oxygen Flow Rate 01/13/24 12:35 01/13/24 12:10 01/13/24 12:15 Temperature Pulse Rate 61 66 65 Respiratory Rate 14 17 17 Blood Pressure 146/95 H 117/66 115/69 Pulse Oximetry 97 97 95 Oxygen Delivery Room Air Nasal Cannula Nasal Cannula Oxygen Flow Rate 2 4 01/13/24 12:20 01/13/24 12:25 01/13/24 12:30 Temperature Pulse Rate 54 L 62 60 Respiratory Rate 12 20 18 Blood Pressure 111/70 106/70 116/70 Pulse Oximetry 100 100 100 Oxygen Delivery Nasal Cannula Nasal Cannula Nasal Cannula Oxygen Flow Rate 4 4 4 01/13/24 12:58 01/13/24 12:40 01/13/24 14:00 Temperature 97.8 F 98.5 F Pulse Rate 54 L 65 70 Respiratory Rate 18 15 14 Blood Pressure 133/83 147/90 H 123/74 Pulse Oximetry 99 95 95 Oxygen Delivery Room Air Oxygen Flow Rate 01/13/24 21:07 Temperature 98.8 F Pulse Rate 77
[2024-01-14 08:28] LABS: Alanine Aminotransferase 19 U/L (6-35); Albumin Level 3.5 g/dL (3.5-5.1); Alkaline Phosphatase 100 U/L (38-126); Anion Gap 6 mmol/L (4-12); Aspartate Amino Transferase 22 U/L (14-36); Bilirubin,Total 0.3 mg/dL (0.2-1.3); Blood Urea Nitrogen 8 mg/dL (7-17); Calcium 8.3 mg/dL (8.4-10.2); Carbon Dioxide 30 mmol/L (22-30); Chloride 100 mmol/L (98-107); Estimated CRCL calculation 98 ml/min; Estimated Glomerular Filt Rate > 60; Glucose 112 mg/dL (65-110); Potassium 3.9 mmol/L (3.4-5.0); Sodium 136 mmol/L (137-145)
[2024-01-14] MEDS: cefoTEtan DISODIUM INJ 2 GM in DEXTROSE 5% IN WATER 50 ML IVPB ×2 (09:25→20:20)
[2024-01-14] MEDS: DOXYCYCLINE 100 MG/NS 100 ML 100 MG/100 ML BAG IVPB ×2 (09:25→20:20)
[2024-01-14] MEDS: ENOXAPARIN 40 MG/0.4 ML SYRINGE SUB-Q (09:26)
[2024-01-14] MEDS: SODIUM CHLORIDE 0.9% IV 1,000 ML 125 ML IV CONT (09:32)
[2024-01-14 14:00] VITALS: BP 123/71; PULSE 63; RESP 20; TEMP 36.9; O2SAT 94
[2024-01-14] MEDS: ACETAMINOPHEN 325 MG TABLET 650 MG PO (15:12)
[2024-01-14 20:51] VITALS: BP 124/78; PULSE 65; RESP 16; TEMP 36.2; O2SAT 99
[2024-01-15 05:11] VITALS: BP 111/72; PULSE 53; RESP 18; TEMP 36.6; O2SAT 99
--- NOTE | 2024-01-15 06:44 | PM.GYNPNOP ---
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 Lovenox 40mg sq daily, ambulation encouraged - Plan: 72 hours of IV antibiotics until abscess cultures/sensitivities result (expect to grow Klebsiella, and will likely switch to PO antibiotics later today); likely discharge tomorrow with drain removal before d/c Postoperative Procedures: Procedures Operation Date: 01/13/24 12:00 Actual Procedure Side Surgeon p Computed Tomography Guided Abscess Catheter Placement Franc Call MD Time Spent With Patient Time: Total time spent is greater than 50% in coordination of care (as documented) at patient's floor/unit and/or counseling patient: Time with patient: less than 15 minutes RN TEACHER- PN:Subj Post-Op Subjective Date/time seen: 01/15/24 06:44 Interval history: Luiclle reports no issues overnight. She had the drain placed 01/12/24-- having less output over last 24hrs. Her pelvic pain is controlled. She denies any fevers or chills. She denies any vaginal discharge or bleeding. She tolerated regular diet. No nausea/vomiting. Urinating and passing gas w/o issue; BM, loose on 01/13/24. Ambulating. Review of Systems Constitutional: Constitutional: Denies chills, Denies fever(s), Denies headache(s) and Denies malaise Eyes: Eyes: Denies change in vision Cardiovascular: Cardiovascular: Denies chest pain and Denies rapid heart rate Respiratory: Respiratory: Denies cough and Denies dyspnea Gastrointestinal: Gastrointestinal: Denies abdominal pain, Denies diarrhea, Denies nausea and Denies vomiting Genitourinary: Genitourinary: Denies abnormal vaginal bleeding, Denies dysuria, Reports pelvic pain (-- mild) and Denies vaginal discharge Exam Const: General: cooperative, comfortable, no acute distress and obese Resp: Effort & Inspection: normal respiratory effort Auscultation: clear to auscultation bilaterally Cardio: Rate: regular rate GI: GI Palp: No abdominal tenderness and Yes Soft to palpation Auscultation: normal bowel sounds Other: LLQ drain with serosanguineous drainage noted in bag : Speculum Exam - Vagina: normal vaginal discharge and No vaginal bleeding Skin: General skin exam: normal color Neuro: General: patient oriented x3 Extrem: General: normal to inspection Psych: Appearance: grossly normal Affect: normal affect Attitude: cooperative RN TEACHER - PN: Obj Data Vital Signs Vital Signs: Vital Signs - 24 hr 01/14/24 09:30 01/14/24 14:00 01/14/24 20:51 Temperature 98.5 F 97.2 F L Pulse Rate 63 65 Respiratory Rate 20 16 Blood Pressure 123/71 124/78 Pulse Oximetry 94 99 Oxygen Delivery Room Air 01/14/24 20:00 01/15/24 05:11 Temperature 97.9 F Pulse Rate 53 L Respiratory Rate 18 Blood Pressure 111/72 Pulse Oximetry 99 Oxygen Delivery Room Air Intake/Output Intake/Output: Intake & Output 01/12/24 01/13/24 01/14/24 01/15/24 23:59 23:59 23:59 23:59 Intake Total 1150 2420 2294 450 Output Total 140 10 Balance 1150 2420 2154 440 Meds/Results Medications: Active Medications Generic Name Dose Route Start Last Admin Trade Name Clive PRN Reason Stop Dose Admin Acetaminophen 650 mg 01/12/24 19:14 01/14/24 15:12 Acetaminophen 325 Mg Tablet PO 650 mg Q4H PRN Administration Mild Pain (1-3) or Fever Enoxaparin Sodium 40 mg 01/14/24 09:00 01/14/24 09:26 Enoxaparin 40 Mg/0.4 Ml Syringe SUB-Q 40 mg DAILY EDMAR Administration Cefotetan Disodium 2 gm/
[2024-01-15 07:07] LABS: Basophils Percent Auto 0.5 % (0.2-1.2); Eosinophils Absolute Auto 0.3 K/mm3 (0-0.3); Eosinophils Percent Auto 4.2 % (0-4.4); Hematocrit 38.5 % (37.0-47.0); Hemoglobin 12.1 g/dL (12.0-15.0); Immature Granulocyte Absolute 0.05 K/mm3 (0.00-0.031); Immature Granulocyte Percent A 0.6 % (0-0.5); Lymphocytes Absolute Auto 2.36 K/mm3 (0.9-3.2); Lymphocytes Percent Auto 28.9 % (18.3-44.2); Mean Corpuscular HGB Conc 31.4 g/dl (32-36); Mean Corpuscular Hemoglobin 27.1 pg (26-34); Mean Corpuscular Volume 86.1 fl (80-100); Mean Platelet Volume 9.2 fl (7.4-10.4); Monocytes Absolute Auto 0.5 K/mm3 (0.1-0.6); Neutrophils Absolute Auto 4.9 K/mm3 (1.3-6.7); Neutrophils Percent Auto 59.8 % (45.5-73.1); Platelet Count Result 411 k/mm3 (150-375); Red Blood Count 4.47 M/mm3 (4.2-5.4); Red Cell Distribution Width 13.9 % (11.5-14.5); White Blood Count 8.2 K/mm3 (4.5-10.0)
[2024-01-15] MEDS: ENOXAPARIN 40 MG/0.4 ML SYRINGE SUB-Q (08:40)
[2024-01-15] MEDS: cefoTEtan DISODIUM INJ 2 GM in DEXTROSE 5% IN WATER 50 ML IVPB (08:40)
[2024-01-15] MEDS: DOXYCYCLINE 100 MG/NS 100 ML 100 MG/100 ML BAG IVPB (08:41)
[2024-01-15] MEDS: ACETAMINOPHEN 325 MG TABLET 650 MG PO (08:46)
[2024-01-15 14:00] VITALS: BP 143/80; PULSE 57; RESP 20; TEMP 35.8; O2SAT 100
--- NOTE | 2024-01-15 16:19 | PM.DS ---
DS: Admitting Diagnosis Discharge Date 01/16/24 Admitting Diagnosis Left TOA DS: Discharge Diagnosis Discharge Diagnosis (1) TOA (tubo-ovarian abscess): Code(s): N70.93 - Salpingitis and oophoritis, unspecified Status: Acute (2) Encounter for drainage of abscess: Code(s): L02.91 - Cutaneous abscess, unspecified Status: Acute Assessment and Plan: s/p IR drain placement DS: Summary Hospital Course Hospital Course: Lucille is a 48yo G0, LMP 01/10/24 who presented to the ER with 5 days of fever, as high at 103. She recently underwent HSC/D&C on 01/05/24 to obtain endometrial sampling (after failed in office EMB) for surgical planning for plans of total hysterectomy. In the ER, she was found to have a WBC of 15k and CT scan shows the Left pyosalpinx had increased in size (now >5cm) with fat stranding noticed in the pelvis. She is currently on her period and denies noticing any overt changes to her vaginal discharge. She also has a UTI. She has a h/o bilateral TOAs; right side was drained by IR 02/2023 and she had a prolonged stay for IV antibiotics. She followed up outpatient and continued to report that she still had a lot of vaginal discharge, odor, and pelvic pain; but the pain was MUCH improved than it used to be. 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 She then completed additional PO antibiotics at that time (04/2023) and continued to feel improved without any fevers, chills or overt bowel/bladder changes and no changes to her vaginal discharge. During this admission, she was started on cefotetan 2g IV q12h and doxycycline 100mg IV q12h. On 01/13/24 she had a percutaneous drain placed by IR. She remained on the IV antibiotics for 48 hours; she remained afebrile, her pain improved, and her WBC downtrended. The percutaneous drain output decreased over the next 3 days and it was removed prior to discharge home on 01/16/24. Her blood cultures remained negative. The urine culture grew Klebsiella pneumonia (what her TOA grew in 02/2023), the culture from the IR drainage showed many WBC, no bacteria was growing. She was transitioned to PO doxycycline 100mg q12h and PO metronidazole 500mg q12h and received 2 doses of PO medications before being discharged home. Her vitals, symptoms, labs remained normal on the PO antibiotics. She was tolerating regular diet without nausea or vomiting. She was urinating and passing gas w/o issue and having normal stools. She was ambulating without issues. Status at Discharge Functional status at discharge: independent ambulation Overall status at discharge: patient is progressing back to baseline Time Spent with Patient Time attestation: Total time spent providing and/or coordinating discharge services: Exam Const: General: cooperative, comfortable, no acute distress and obese Resp: Effort & Inspection: normal respiratory effort Auscultation: clear to auscultation bilaterally Cardio: Rate: regular rate GI: GI Palp: No abdominal tenderness and Yes Soft to palpation Auscultation: normal bowel sounds Other: LLQ drain with serosanguineous drainage noted in bag--- removed prior to discharge on 01/16/24 and covered with clean dressing. : Speculum Exam - Vagina: normal vaginal discharge and No vaginal bleeding Skin: General skin exam: normal color Neuro: General: patient oriented x3 Extrem: General: normal to inspection Psych: Appearance: grossly normal Affect: normal affect Attitude: cooperative DS: Data Data Completed and Pending Labs on day of discharge: Labs from last 24 hours 01/15/24 06:54 WBC 8.2 RBC 4.47 Hgb 12.1 Hct 38.5 MCV 86.1 MCH 27.1 MCHC 31.4 L RDW 13.9 Plt Count 411 H MPV 9.2 Immature Gran % (Auto) 0.6 H Neut % (Auto) 59.8 Lymph % (Auto) 28.9 [place] % (Auto) 6.0 Eos % (Auto) 4.2 Baso % (Auto) 0.5 Lymph # (Auto) 2.36 [place] # (Auto) 0.5 Eos # (Auto) 0.3 Baso # (Auto) 0.0 Abs Immat Gran
[2024-01-15] MEDS: metroNIDAZOLE 500 MG TABLET PO (20:24)
[2024-01-15] MEDS: DOXYCYCLINE HYCLATE 100 MG TABLET PO (20:24)
[2024-01-15 21:09] VITALS: BP 119/75; PULSE 59; RESP 18; TEMP 36.4; O2SAT 96
[2024-01-16 06:14] VITALS: BP 117/71; PULSE 56; RESP 14; TEMP 36.6; O2SAT 96
[2024-01-16 06:29] LABS: Basophils Absolute Auto 0.1 K/mm3 (0.0-0.1); Basophils Percent Auto 0.7 % (0.2-1.2); Eosinophils Absolute Auto 0.4 K/mm3 (0-0.3); Eosinophils Percent Auto 4.4 % (0-4.4); Hematocrit 39.5 % (37.0-47.0); Hemoglobin 12.6 g/dL (12.0-15.0); Immature Granulocyte Absolute 0.07 K/mm3 (0.00-0.031); Immature Granulocyte Percent A 0.7 % (0-0.5); Lymphocytes Absolute Auto 2.35 K/mm3 (0.9-3.2); Lymphocytes Percent Auto 24.6 % (18.3-44.2); Mean Corpuscular HGB Conc 31.9 g/dl (32-36); Mean Corpuscular Hemoglobin 27.6 pg (26-34); Mean Corpuscular Volume 86.6 fl (80-100); Mean Platelet Volume 9.5 fl (7.4-10.4); Monocytes Absolute Auto 0.6 K/mm3 (0.1-0.6); Monocytes Percent Auto 6.2 % (2.6-8.5); Neutrophils Absolute Auto 6.1 K/mm3 (1.3-6.7); Neutrophils Percent Auto 63.4 % (45.5-73.1); Platelet Count Result 454 k/mm3 (150-375); Red Blood Count 4.56 M/mm3 (4.2-5.4); White Blood Count 9.6 K/mm3 (4.5-10.0)
[2024-01-16] MEDS: DOXYCYCLINE HYCLATE 100 MG TABLET PO (08:05)
[2024-01-16] MEDS: metroNIDAZOLE 500 MG TABLET PO (08:05)
[2024-01-16] MEDS: oxyCODONE/ACETAMINOPHEN (*CRX) 10-325 MG TABLET 1 TAB PO (09:11)
[2024-01-16] MEDS: NEOMYCIN/POLYMYXIN/BACITRACIN OINTMENT PACKET 1 PACKET (09:13)
[2024-01-16 09:17] VITALS: BP 149/76; PULSE 48; O2SAT 100
[2024-01-16 09:29] VITALS: O2SAT 96
== END 2024-01-16 13:18 | disposition home or self-care (01) | DRG 758 ==
LOC: ANHED 19:14 → ANH3MEDSUR 19:35
PROVIDERS: Preventive Medicine Aerospace Medicine; Radiology Diagnostic Radiology; Admitting Provider Obstetrics & Gynecology; Emergency Provider Physician Assistant; Visit Provider Obstetrics & Gynecology
PROC: 0U9130Z Drainage of Left Ovary with Drainage Device, Percutaneous Approach (ICD-10-PCS; CPT 75989; principal; 2024-01-13 12:00)
DX: N70.93 Salpingitis and oophoritis, unspecified (principal); N39.0 Urinary tract infection, site not specified; B96.1 Klebsiella pneumoniae [K. pneumoniae] as the cause of diseases classified elsewhere; E66.9 Obesity, unspecified; Z68.39 Body mass index [BMI] 39.0-39.9, adult; Z20.822 Contact with and (suspected) exposure to COVID-19
CPT/HCPCS: 36415; 71046; 74177; 75989; 80053; 81001; 83605; 83690; 85025; 85610; 85652; 85730; 86140; 87040; 87070; 87075; 87077; 87086; 87088; 87186; 87205; 87637; 96361; 96365; 96375; 99285; A9270; C1729; C1769; J1650; J2250; J2405; J3010; J7030; J7040; Q9967